=== PATIENT | male | born 1975 | race African-American/Black ===

== ENCOUNTER 2018-06-26 16:49 | Emergency (ER) | payer MEDICAID, SELFPAY ==
[2018-06-26 16:56] VITALS: BP 133/82; PULSE 83; RESP 16; TEMP 36.4; O2SAT 99; BMI 33.9
--- NOTE | 2018-06-26 17:57 | ED.EAR ---
HPI - Ear Problem <BASHIR Ryder - Last Filed: 06/26/18 21:35> General Chief complaint: Ear Stated complaint: LEFT EAR PAIN Time Seen by Provider: 06/26/18 17:57 Source: patient Mode of arrival: ambulatory Limitations: no limitations History of Present Illness HPI Narrative: 42-year-old male here for complaint of having pain into his left ear canal over the past several days. He denies any trauma to the area. He denies any fevers or chills. He denies any recent trauma. No drainage from the left ear. He denies any changes in hearing. He denies any recent travel. He denies diving or airline travel pain. He states that his today his right ear started hurting slightly as well. He denies any other concerns or complaints at this time. MD Complaint: ear pain Location: bilateral Related Data Home Medications Medication Instructions Recorded Confirmed oxybutynin chloride 5 mg PO TID #0 10/01/17 prazosin 2 mg PO HS #0 10/01/17 prazosin 5 mg PO HS #0 10/01/17 quetiapine 50 mg PO BID #0 10/01/17 risperidone [Risperdal] 1 mg PO HS #0 10/01/17 Previous Rx's Medication Instructions Recorded prednisone 20 mg PO SEE INSTRUCTIONS #8 tab 10/01/17 sulfamethoxazole-trimethoprim 1 tab PO BID #20 tab 10/01/17 ofloxacin 10 drop EAR-BOTH DAILY 7 Days #10 06/26/18 ml Allergies Allergy/AdvReac Type Severity Reaction Status Date / Time carrot [CARROT] Allergy Severe Swelling Verified 06/26/18 17:02 of Lip/Tongue/Throat Review of Systems <BASHIR Ryder - Last Filed: 06/26/18 21:35> Constitutional Denies chills, Denies fever(s), Denies lethargy and Denies weakness Eyes Denies change in vision, Denies eye discharge, Denies irritation and Denies loss of vision ENT Ears, Nose, Mouth, and Throat: Reports otalgia Cardiovascular Denies chest pain, Denies irregular heart rhythm, Denies lightheadedness, Denies palpitations, Denies dyspnea, Denies dyspnea on exertion and Denies orthopnea Respiratory Denies cough, Denies dyspnea, Denies dyspnea on exertion and Denies wheezing Genitourinary Denies hematuria, Denies flank pain, Denies urinary incontinence and Denies urinary urgency Musculoskeletal Denies back pain, Denies muscle weakness, Denies numbness and Denies tingling Integumentary/Breasts Denies pruritus, Denies erythema, Denies rash and Denies wounds Neurologic Denies confusion, Denies loss of vision, Denies numbness, Denies tingling and Denies weakness Psychiatric Denies anxiety, Denies confusion, Denies depression, Denies homicidal ideation and Denies suicidal ideation Endocrine Denies palpitations Hematologic/Lymphatic Denies easy bruising Allergic/Immunologic Denies wheezing Exam <JESSE RyderP - Last Filed: 06/26/18 21:35> Initial Vital Signs Initial Vital Signs: Vital Signs Temperature 97.5 F L 06/26/18 16:56 Pulse Rate 83 06/26/18 16:56 Respiratory Rate 16 06/26/18 16:56 Blood Pressure 133/82 H 06/26/18 16:56 Pulse Oximetry 99 06/26/18 16:56 Const General: cooperative and well developed Nutritional Appearance: well nourished Orientation: alert, awake, oriented x3 and not confused HENMT Ears: external ears normal, TM's normal bilaterally and EAC's normal (Bilateral external ear canals erythematous) Mouth: oral mucosae normal and moist mucous membranes Eyes Conjunctivae: conjunctivae normal Sclera: sclerae normal Pupils: PERRL EOM: EOM intact bilaterally Resp Effort & Inspection: normal respiratory effort, able to speak in complete sentences, no respiratory distress and no use of accessory muscles Auscultation: clear to auscultation bilaterally, no rales, no rhonchi and no wheezes Cardio Rate: regular rate Rhythm: regular rhythm Heart Sounds: no click, no gallops, no murmurs and no rubs Pulses: normal peripheral pulses Skin General: no rashes or lesions noted, No jaundice and No petechiae Neuro General: alert, oriented x3, gait normal and no focal motor deficits Speech: speech normal <Ventura Schuler DO - Last Filed: 06/27/18 03:14> Initial Vital Signs Initial Vital Signs: Vital Signs Temperature 97.5 F L 06/26/18 16:56 Pulse Rate 83 06/26/18 16:56 Respiratory Rate 16 06/26/18 16:56 Blood Pressure 133/82 H 06/26/18 16:56 Pulse Oximetry 99 06/26/18 16:56 Course <BASHIR Ryder - Last Filed: 06/26/18 21:35> Orders Ordered: Discontinued Medications Ofloxacin (Floxin 0.3% Otic) 10 drops EAR-BOTH NOW ONE Stop: 06/26/18 20:04 Last Admin: 06/26/18 20:27 Dose: 10 drops Vital Signs - 8 hr 06/26/18 16:56 Temperature 97.5 F L Pulse Rate 83 Respiratory Rate 16 Blood Pressure 133/82 H Pulse Oximetry 99 <Ventura Schuler DO - Last Filed: 06/27/18 03:14> Orders Ordered: Discontinued Medications Ofloxacin (Floxin 0.3% Otic) 10 drops EAR-BOTH NOW ONE Stop: 06/26/18 20:04 Last Admin: 06/26/18 20:27 Dose: 10 drops Vital Signs - 8 hr 06/26/18 16:56 Temperature 97.5 F L Pulse Rate 83 Respiratory Rate 16 Blood Pressure 133/82 H Pulse Oximetry 99 Medical Decision Making <BASHIR Ryder - Last Filed: 06/26/18 21:35> MDM Narrative Medical decision making narrative: Signs and symptoms presents as a bilateral otitis externa. He is given a Dosepak of neomycin and polymyxin B hydrocortisone solution for treatment. Follow up with primary care provider later this week for re-evaluation. For any worsening symptoms return to the emergency room. Discharge Plan Departure Patient Disposition: Home Clinical Impression: Otitis externa Discharge Date/Time: 06/26/18 20:37 Interventions: ED Discharge Assessment Last Done: 06/26/18 20:37 Instructions: DI for Otitis Externa Activity Restrictions/Additional Instructions: Signs and symptoms presents as external ear infection called otitis externa. You have been placed on antibiotic drops use as directed. Use [id number] Tylenol or Motrin as needed for any discomfort. Follow up with primary care provider later this week. For any worsening symptoms return to the emergency room. Prescriptions: New ofloxacin 0.3 % drops 10 drop EAR-BOTH DAILY 7 Days Qty: 10 RF: 0 No Action risperidone [Risperdal] 1 MG tablet 1 mg PO HS Qty: 0 RF: 0 quetiapine 50 MG tablet 50 mg PO BID Qty: 0 RF: 0 prazosin 5 MG capsule 5 mg PO HS Qty: 0 RF: 0 prazosin 2 MG capsule 2 mg PO HS Qty: 0 RF: 0 oxybutynin chloride 5 MG tablet 5 mg PO TID Qty: 0 RF: 0 prednisone 20 MG tablet 20 mg PO SEE INSTRUCTIONS Qty: 8 RF: 0 sulfamethoxazole-trimethoprim 800 MG/160 MG tablet 1 tab PO BID Qty: 20 RF: 0 Referrals: [facility] [Provider Group] <Ventura Schuler, - Last Filed: 06/27/18 03:14> Cosign ED Attending Benson Attestation: I was immediately available in the department for consultation. Documentation has been reviewed. I agree with assessment and plan.
[2018-06-26] MEDS: OFLOXACIN 0.3% OTIC 5 ML 10 DROPS EAR-BOTH (20:27)
== END 2018-06-26 20:37 | disposition home or self-care (01) ==
PROVIDERS: Emergency Provider Nurse Practitioner Family
DX: H60.92 Unspecified otitis externa, left ear (principal)
CPT/HCPCS: 99282

== ENCOUNTER 2019-05-15 20:44 | Emergency (ER) | payer MEDICAID, SELFPAY ==
[2019-05-15 20:50] VITALS: BP 157/86; PULSE 87; RESP 25; TEMP 37.2; O2SAT 96; BMI 34.2
--- NOTE | 2019-05-15 20:57 | ED.CHESTPAIN ---
HPI - Chest Pain General Chief Complaint: Chest Pain Stated Complaint: CHEST PAIN Time Seen by Provider: 05/15/19 20:57 Source: patient Mode of arrival: ambulatory Limitations: no limitations History of Present Illness HPI narrative: Patient is a 43-year-old male who was just discharged from an outside facility today after he was admitted for several days with a diagnosis of rhabdomyolysis. Patient states he was sitting on his couch earlier today when he started to have right-sided chest pain. He states it was a sudden onset. It was worse with palpation. States that it is a fairly pinpoint area on the right side of his chest. No shortness of breath. Has not tried anything for the symptoms prior to arrival. Related Data Home Medications Medication Instructions Recorded Confirmed oxybutynin chloride 5 mg PO TID #0 10/01/17 prazosin 2 mg PO HS #0 10/01/17 prazosin 5 mg PO HS #0 10/01/17 quetiapine 50 mg PO BID #0 10/01/17 risperidone [Risperdal] 1 mg PO HS #0 10/01/17 Previous Rx's Medication Instructions Recorded prednisone 20 mg PO SEE INSTRUCTIONS #8 tab 10/01/17 sulfamethoxazole-trimethoprim 1 tab PO BID #20 tab 10/01/17 Allergies Allergy/AdvReac Type Severity Reaction Status Date / Time carrot [CARROT] Allergy Severe Swelling Verified 06/26/18 17:02 of Lip/Tongue/Throat Review of Systems Constitutional Denies fever(s) and Denies headache(s) ENT Ears, Nose, Mouth, and Throat: Denies dizziness and Denies headache(s) Cardiovascular Reports chest pain, Denies irregular heart rhythm, Denies radiating jaw, neck or arm pain, Denies palpitations and Denies dyspnea Respiratory Denies cough and Denies dyspnea Gastrointestinal Gastrointestinal: Denies abdominal pain, Denies nausea and Denies vomiting Musculoskeletal Denies back pain, Denies myalgias and Denies arthralgias Integumentary/Breasts Denies rash Neurologic Denies dizziness and Denies headache(s) Endocrine Denies palpitations Hematologic/Lymphatic Denies easy bleeding and Denies easy bruising Allergic/Immunologic Denies urticaria [facility] Medical History Erysipelas (Acute) Social History (Reviewed 05/16/19 @ 02:24 by ANAHY Roberts Smoking Status: Former smoker Exam Initial Vital Signs Initial Vital Signs: Vital Signs Temperature 98.9 F 05/15/19 20:50 Pulse Rate 87 05/15/19 20:50 Respiratory Rate 25 H 05/15/19 20:50 Blood Pressure 157/86 H 05/15/19 20:50 Pulse Oximetry 96 05/15/19 20:50 Const General: cooperative, comfortable, well developed, well groomed and No acute distress Orientation: alert, awake and oriented x3 HENMT Head: normal to inspection and normocephalic Chest Chest: No crepitus and tenderness (right sided) Resp Effort & Inspection: normal respiratory effort Auscultation: clear to auscultation bilaterally Cardio Rate: regular rate Rhythm: regular rhythm Pulses: radial pulses present GI Inspection: non-distended Palpation: soft, No firm and No tender Skin Lesions: no lesions Rashes: no rashes Neuro General: alert and awake Cognition: normal cognition Speech: speech normal Gait: normal gait Extrem General: normal to inspection and capillary refill normal Psych Appearance: grossly normal and well kempt Scores HEART Score Heart Score history: Slightly Suspicious Heart Score EKG: Normal Heart Score Age: 45-64 years old Heart Score risk factors: No known risk factors Heart Score troponin: < or = to normal limit Heart Score Total: 1 Course Orders Ordered: ED Orders 05/15/19 20:59 XR chest 1V Stat EKG-12 Lead Stat 05/15/19 21:08 Complete Blood Count AUTO DIFF Stat Comprehensive Metabolic Panel Stat Creatine Kinase Stat Ethanol (ETOH) Stat Partial Thromboplastin Time Stat Prothrombin Time INR Stat Troponin I Stat Discontinued Medications Aspirin (Aspirin Chew) 324 mg PO NOW ONE Stop: 05/15/19 20:58 Last Admin: 05/15/19 21:03 Dose: 324 mg Sodium Chloride (Normal Saline 0.9%) 1,000 mls @ 125 mls/hr IV CONT TRANG Last Infusion: 05/15/19 22:04 Dose: 125 mls/hr Admin: 05/15/19 21:06 Dose: 125 mls/hr Vital Signs - 8 hr 05/15/19 20:50 05/15/19 21:11 05/15/19 21:57 Temperature 98.9 F Pulse Rate 87 87 82 Respiratory Rate 25 H 24 22 Blood Pressure 157/86 H Blood Pressure [Right Arm] 152/78 H 145/91 H Pulse Oximetry 96 96 95 MDM - Chest Pain Lab Data Attestation: I reviewed the patient's lab results. Result diagrams: 05/15/19 21:08 05/15/19 21:08 Lab Results 05/15/19 05/15/19 05/15/19 Range/Units 21:08 21:08 21:08 WBC 8.1 (4.5-11.0) X10^3/uL RBC 4.89 (4.5-5.9) X10^6/uL Hgb 14.0 (13.5-17.5) g/dL Hct 40.5 L (41-53) % MCV 82.8 (80-100) fL MCH 28.6 (26-34) PG MCHC 34.5 (30-36) % RDW 13.5 (11.6-14.8) % Plt Count 283 (150-400) X10^3/uL Neut % (Auto) 55.9 (50-75) % Lymph % (Auto) 29.6 (25-40) % [place] % (Auto) 11.0 (3-14) % Eos % (Auto) 2.2 (2-4) % Baso % (Auto) 1.3 (0-2) % Neut # (Auto) 4500 (7950-3966) /uL Lymph # (Auto) 2400 (4933-2354) /uL [place] # (Auto) 900 (0-900) /uL Eos # (Auto) 200 (0-450) /uL Baso # (Auto) 100 (0-100) /uL PT 10.5 (10.1-12.7) SECONDS INR 0.9 (0.9-1.3) APTT 28 (26.4-36.2) SECONDS Sodium 141 (137-145) mmol/L Potassium 4.1 (3.4-5.1) mmol/L Chloride 102 (98-107) mmol/L Carbon Dioxide 29 (22-32) mmol/L BUN 12 (9-20) mg/dL Creatinine 1.10 (0.66-1.25) mg/dL Estimated GFR > 60.0 (>60) mL/min BUN/Creatinine Ratio 10.9 (6-22) Glucose 103 H (70-100) mg/dL Calcium 9.7 (8.4-10.2) mg/dL Total Bilirubin 0.4 (0.2-1.3) mg/dL AST 63 H (17-59) IU/L ALT 73 H (21-72) IU/L Alkaline Phosphatase 95 (38-126) U/L Total Creatine Kinase 649 H (55-170) U/L Troponin I (0.01-0.034) ng/mL Total Protein 7.7 (6.3-8.2) g/dL Albumin 4.4 (3.5-5.0) g/dL Globulin 3.3 (1.7-4.1) g/dL Albumin/Globulin Ratio 1.3 (1.0-2.8) Ethyl Alcohol < 10 mg/dL 05/15/19 Range/Units 21:08 WBC (4.5-11.0) X10^3/uL RBC (4.5-5.9) X10^6/uL Hgb (13.5-17.5) g/dL Hct (41-53) % MCV (80-100) fL MCH (26-34) PG MCHC (30-36) % RDW (11.6-14.8) % Plt Count (150-400) X10^3/uL Neut % (Auto) (50-75) % Lymph % (Auto) (25-40) % [place] % (Auto) (3-14) % Eos % (Auto) (2-4) % Baso % (Auto) (0-2) % Neut # (Auto) (1499-4835) /uL Lymph # (Auto) (7625-3688) /uL [place] # (Auto) (0-900) /uL Eos # (Auto) (0-450) /uL Baso # (Auto) (0-100) /uL PT (10.1-12.7) SECONDS INR (0.9-1.3) APTT (26.4-36.2) SECONDS Sodium (137-145) mmol/L Potassium (3.4-5.1) mmol/L Chloride (98-107) mmol/L Carbon Dioxide (22-32) mmol/L BUN (9-20) mg/dL Creatinine (0.66-1.25) mg/dL Estimated GFR (>60) mL/min BUN/Creatinine Ratio (6-22) Glucose (70-100) mg/dL Calcium (8.4-10.2) mg/dL Total Bilirubin (0.2-1.3) mg/dL AST (17-59) IU/L ALT (21-72) IU/L Alkaline Phosphatase (38-126) U/L Total Creatine Kinase (55-170) U/L Troponin I < 0.012 (0.01-0.034) ng/mL Total Protein (6.3-8.2) g/dL Albumin (3.5-5.0) g/dL Globulin (1.7-4.1) g/dL Albumin/Globulin Ratio (1.0-2.8) Ethyl Alcohol mg/dL Imaging Data Chest x-ray: Radiologist's impression: [address] [address] XRay Report Signed Patient: Orion Gómez PMR#: [id number] : 1975Acct:[id number] Age/Sex: 43 / MDate of Service: 05/15/19 Loc: ED Accession Number: [id number] Procedure: XR chest 1V Ordering Provider: Rommel Molina D.O. PROCEDURE: XR CHEST 1V INDICATIONS: Chest pain TECHNIQUE: One view of the chest was acquired. COMPARISON: None. FINDINGS: Surgical changes and devices: None. Lungs and pleura: Lungs are clear. No pleural effusions or pneumothorax. Mediastinum: Mediastinal contours appear normal. Heart size is normal. Bones and chest wall: No suspicious bony lesions. Overlying soft tissues appear unremarkable. IMPRESSION: No acute pulmonary process. Dictated by: Iva Eubanks M.D. on 05/15/2019 at 21:25 Approved by: Iva Eubanks M.D. on 05/15/2019 at 21:25 ECG Data Attestation: I personally reviewed and interpreted this ECG as follows: Prior ECG tracings: not available for review Interpretation: Sinus rhythm Ventricular rate 89 Normal axis Normal QRS Normal QTC Nonspecific ST T wave changes MDM Narrative Medical decision making narrative: Patient with reproducible right-sided chest discomfort. EKG is unremarkable. Chest x-ray is unremarkable. CK is slightly elevated I suspect that this is decreased from when he was discharged. His creatinine is unremarkable. Low suspicion for ACS. Discussed this with the patient. We discussed return precautions and follow-up instructions. He expressed understanding and agreement plan. Discharge Plan Departure Patient Disposition: Home Clinical Impression: Anterior chest wall pain Discharge Date/Time: 05/15/19 22:08 Interventions: ED Discharge Assessment Last Done: 05/15/19 22:05 Instructions: DI for Atypical Chest Pain Activity Restrictions/Additional Instructions: Recommend that tomorrow you follow-up with the clinic. Be sure to increase your fluid intake. Return to the emergency department for any new or worsening symptoms Prescriptions: No Action risperidone [Risperdal] 1 MG tablet 1 mg PO HS Qty: 0 RF: 0 quetiapine 50 MG tablet 50 mg PO BID Qty: 0 RF: 0 prazosin 5 MG capsule 5 mg PO HS Qty: 0 RF: 0 prazosin 2 MG capsule 2 mg PO HS Qty: 0 RF: 0 oxybutynin chloride 5 MG tablet 5 mg PO TID Qty: 0 RF: 0 prednisone 20 MG tablet 20 mg PO SEE INSTRUCTIONS Qty: 8 RF: 0 sulfamethoxazole-trimethoprim 800 MG/160 MG tablet 1 tab PO BID Qty: 20 RF: 0
[2019-05-15] MEDS: ASPIRIN 81 MG TAB 324 MG PO (21:03)
[2019-05-15] MEDS: SODIUM CHLORIDE 0.9% 1,000 ML 125 ML IV (21:06)
[2019-05-15 21:11] VITALS: BP 152/78; PULSE 87; RESP 24; O2SAT 96
[2019-05-15 21:16] LABS: Add Manual Diff / Slide Review NO; Basophils Absolute Auto 100 /uL (0-100); Basophils Percent Auto 1.3 % (0-2); Eosinophils Absolute Auto 200 /uL (0-450); Eosinophils Percent Auto 2.2 % (2-4); Hematocrit 40.5 % (41-53); Lymphocytes Absolute Auto 2400 /uL (1100-4500); Lymphocytes Percent Auto 29.6 % (25-40); Mean Corpuscular HGB Conc 34.5 % (30-36); Mean Corpuscular Hemoglobin 28.6 PG (26-34); Mean Corpuscular Volume 82.8 fL (80-100); Monocytes Absolute Auto 900 /uL (0-900); Neutrophils Absolute Auto 4500 /uL (1500-7000); Neutrophils Percent Auto 55.9 % (50-75); Platelet Count 283 X10^3/uL (150-400); Red Blood Cell Count 4.89 X10^6/uL (4.5-5.9); Red Cell Distribution Width 13.5 % (11.6-14.8); White Blood Cell Count 8.1 X10^3/uL (4.5-11.0)
[2019-05-15 21:24] LABS: INR 0.9 (0.9-1.3); Prothrombin Time 10.5 SECONDS (10.1-12.7)
[2019-05-15 21:27] LABS: PTT Partial Thromboplastin Tim 28 SECONDS (26.4-36.2)
[2019-05-15 21:30] LABS: Alanine Aminotransferase 73 IU/L (21-72); Albumin 4.4 g/dL (3.5-5.0); Albumin Globulin Ratio 1.3 (1.0-2.8); Alkaline Phosphatase 95 U/L (38-126); Aspartate Aminotransferase 63 IU/L (17-59); BUN Creatinine Ratio 10.9 (6-22); Bilirubin Total 0.4 mg/dL (0.2-1.3); Blood Urea Nitrogen 12 mg/dL (9-20); Calcium 9.7 mg/dL (8.4-10.2); Carbon Dioxide 29 mmol/L (22-32); Chloride 102 mmol/L (98-107); Creatine Kinase 649 U/L (55-170); Estimated Glomerular Filt Rate > 60.0 mL/min (>60); Ethanol (ETOH) < 10 mg/dL; Globulin 3.3 g/dL (1.7-4.1); Glucose 103 mg/dL (70-100); HEMOLYSIS 17 (0-50); Potassium 4.1 mmol/L (3.4-5.1); Sodium 141 mmol/L (137-145); Total Protein 7.7 g/dL (6.3-8.2)
[2019-05-15 21:42] LABS: Troponin I < 0.012 ng/mL (0.01-0.034)
[2019-05-15 21:57] VITALS: BP 145/91; PULSE 82; RESP 22; O2SAT 95
== END 2019-05-15 22:08 | disposition home or self-care (01) ==
PROVIDERS: Emergency Provider Emergency Medicine
DX: R07.89 Other chest pain (principal)
CPT/HCPCS: 36591; 71045; 80053; 80320; 82550; 84484; 85025; 85610; 85730; 93005; 96360; 99283; 99285

== ENCOUNTER 2019-06-20 23:25 | Emergency (ER) | payer MEDICAID, SELFPAY ==
[2019-06-20 23:30] VITALS: BP 155/99; PULSE 117; RESP 35; TEMP 37; O2SAT 94; BMI 35.2
[2019-06-20 23:35] VITALS: PULSE 117; RESP 35; TEMP 37; O2SAT 94
--- NOTE | 2019-06-20 23:48 | DI.RAD.S_ITS ---
PROCEDURE: XR CHEST 1V INDICATIONS: chest pain, dyspnea TECHNIQUE: One view of the chest was acquired. COMPARISON: [facility], CR, XR CHEST 1V, 05/15/2019, 21:07. FINDINGS: Surgical changes and devices: None. Lungs and pleura: Lung volumes are slightly diminished. Mild diffuse interstitial prominence. Interval visualization of the right minor fissure. There is hazy opacities of the left costophrenic angle suggesting a small left pleural effusion. Mild vascular congestion. No pneumothorax. No focal consolidation. Mediastinum: cardiomediastinal contours appear within normal limits with mild enlargement of the cardiac silhouette. This may be in part due to portable technique and mild lordotic positioning. Bones and chest wall: No suspicious bony lesions. Overlying soft tissues appear unremarkable. Healed left rib fracture deformity as before. IMPRESSION: Diffuse interstitial prominence, suggestion of vascular congestion and small bilateral pleural effusions. This in combination with mild cardiomegaly are suggestive of pulmonary edema. Infectious/inflammatory process not excluded. Patient positioning and hypoventilatory changes may accentuate these findings. Dictated by: Edouard Ghosh M.D. on 06/21/2019 at 9:17 Approved by: Edouard Ghosh M.D. on 06/21/2019 at 9:20
[2019-06-21 00:09] LABS: Add Manual Diff / Slide Review NO; Basophils Absolute Auto 100 /uL (0-100); Basophils Percent Auto 0.7 % (0-2); Eosinophils Absolute Auto 0 /uL (0-450); Eosinophils Percent Auto 0.1 % (2-4); Hematocrit 42.2 % (41-53); Hemoglobin 14.3 g/dL (13.5-17.5); Lymphocytes Absolute Auto 1300 /uL (1100-4500); Lymphocytes Percent Auto 17.1 % (25-40); Mean Corpuscular HGB Conc 33.8 % (30-36); Mean Corpuscular Hemoglobin 28.7 PG (26-34); Mean Corpuscular Volume 84.8 fL (80-100); Monocytes Absolute Auto 1100 /uL (0-900); Monocytes Percent Auto 13.5 % (3-14); Neutrophils Absolute Auto 5300 /uL (1500-7000); Neutrophils Percent Auto 68.6 % (50-75); Platelet Count 218 X10^3/uL (150-400); Red Blood Cell Count 4.97 X10^6/uL (4.5-5.9); Red Cell Distribution Width 14.3 % (11.6-14.8); White Blood Cell Count 7.8 X10^3/uL (4.5-11.0)
[2019-06-21 00:19] LABS: Alanine Aminotransferase 64 IU/L (21-72); Albumin 4.5 g/dL (3.5-5.0); Albumin Globulin Ratio 1.3 (1.0-2.8); Alkaline Phosphatase 88 U/L (38-126); Aspartate Aminotransferase 47 IU/L (17-59); BUN Creatinine Ratio 13.3 (6-22); Bilirubin Total 0.8 mg/dL (0.2-1.3); Blood Urea Nitrogen 16 mg/dL (9-20); Calcium 9.6 mg/dL (8.4-10.2); Carbon Dioxide 26 mmol/L (22-32); Chloride 98 mmol/L (98-107); Creatine Kinase 695 U/L (55-170); Estimated Glomerular Filt Rate > 60.0 mL/min (>60); Globulin 3.5 g/dL (1.7-4.1); Glucose 166 mg/dL (70-100); HEMOLYSIS < 15 (0-50); Lipase 45 U/L (23-300); Potassium 4.3 mmol/L (3.4-5.1); Sodium 136 mmol/L (137-145)
[2019-06-21] MEDS: ASPIRIN 81 MG TAB 324 MG PO (00:19)
[2019-06-21] MEDS: SODIUM CHLORIDE 0.9% 1,000 ML 150 ML IV (00:20)
[2019-06-21 00:30] LABS: Troponin I 0.027 ng/mL (0.01-0.034)
[2019-06-21 00:34] LABS: CKMB % Relative Index 0.3 % (1.5-5.0); Creatine Kinase MB 1.87 ng/mL (<2.37)
[2019-06-21] MEDS: OLANZapine ODT 10 MG TAB 20 MG PO (01:18)
[2019-06-21 01:34] VITALS: BP 188/101; PULSE 109; RESP 20; O2SAT 98
--- NOTE | 2019-06-21 01:46 | PC.NURSE ---
Moved to room 6 to be in view of nurses station.
--- NOTE | 2019-06-21 01:47 | ED.CHESTPAIN ---
HPI - Chest Pain General Chief Complaint: Chest Pain Stated Complaint: Chest pain Time Seen by Provider: 06/20/19 23:25 Source: patient and EMS Mode of arrival: EMS Limitations: no limitations History of Present Illness HPI narrative: 43-year-old male smoker with history of schizophrenia presents with chest pain and shortness of breath that started after snorting methamphetamines. He has had this on multiple occasions before. He states he has not taken his antipsychotics in the past few days and occasionally hears voices which drove him to use the drugs. He is not dizzy nor weak or lightheaded. He is alert and oriented. He denies any fever or shaking chills. He denies any recent travel or history of clots. MD complaint: chest pain Duration: constant Onset: during rest Pain location: substernal Severity: moderate Quality: sharp Pain radiation: none Relieving factors: nothing Exacerbating factors: nothing Related Data Home Medications Medication Instructions Recorded Confirmed oxybutynin chloride 5 mg PO TID #0 10/01/17 prazosin 2 mg PO HS #0 10/01/17 prazosin 5 mg PO HS #0 10/01/17 quetiapine 50 mg PO BID #0 10/01/17 risperidone [Risperdal] 1 mg PO HS #0 10/01/17 Previous Rx's Medication Instructions Recorded prednisone 20 mg PO SEE INSTRUCTIONS #8 tab 10/01/17 sulfamethoxazole-trimethoprim 1 tab PO BID #20 tab 10/01/17 Allergies Allergy/AdvReac Type Severity Reaction Status Date / Time carrot [CARROT] Allergy Severe Swelling Verified 06/21/19 00:10 of Lip/Tongue/Throat Review of Systems Constitutional Reports chills, Denies fever(s), Denies lethargy and Denies weakness Eyes Denies change in vision, Denies eye discharge, Denies irritation and Denies loss of vision ENT Ears, Nose, Mouth, and Throat: Denies change in voice, Denies neck pain and Denies sore throat Cardiovascular Reports chest pain, Denies irregular heart rhythm, Denies lightheadedness, Denies palpitations, Reports dyspnea, Reports dyspnea on exertion and Denies orthopnea Respiratory Denies cough, Reports dyspnea, Reports dyspnea on exertion and Denies wheezing Gastrointestinal Gastrointestinal: Denies abdominal pain, Denies change in bowel habits, Denies diarrhea, Denies nausea and Denies vomiting Genitourinary Denies hematuria, Denies flank pain, Denies urinary incontinence and Denies urinary urgency Musculoskeletal Denies neck pain Integumentary/Breasts Denies pruritus, Denies erythema, Denies rash and Denies wounds Neurologic Denies confusion, Denies loss of vision and Denies weakness Psychiatric Denies anxiety, Denies confusion, Denies depression, Denies homicidal ideation and Denies suicidal ideation Endocrine Denies palpitations Hematologic/Lymphatic Denies easy bruising Allergic/Immunologic Denies wheezing [facility] Medical History Erysipelas (Acute) Social History Smoking Status: Former smoker Social History Smoking Status: Former smoker Exam Narrative Exam Narrative: GENERAL: [43] year old patient appears stated age. Well-nourished, well-developed patient, in mild distress. HEAD: Atraumatic. Normocephalic. EYES: Pupils equal round and reactive. Extraocular motions intact. No scleral icterus. No injection or drainage. ENT: Nose without bleeding, purulent drainage. Throat without erythema, tonsillar hypertrophy or exudate. Airway patent. NECK: Trachea midline. Non tender CARDIOVASCULAR: Regular rate and rhythm without murmurs, gallops, or rubs. RESPIRATORY: Clear to auscultation. Breath sounds equal bilaterally. No wheezes, rales, or rhonchi. GASTROINTESTINAL: Abdomen soft, non-tender, nondistended. EXTREMITIES: No edema or joint tenderness. BACK: Nontender without deformity or crepitance. No flank tenderness. NEURO: AOx3. SKIN: No rash or erythema of visible areas Initial Vital Signs Initial Vital Signs: Vital Signs Temperature 98.6 F 06/20/19 23:30 Pulse Rate 117 H 06/20/19 23:30 Respiratory Rate 35 H 06/20/19 23:30 Blood Pressure 155/99 H 06/20/19 23:30 Pulse Oximetry 94 06/20/19 23:30 Course Orders Ordered: ED Orders 06/20/19 23:40 Complete Blood Count AUTO DIFF Stat Comprehensive Metabolic Panel Stat Lipase Stat Troponin & CK Cardiac Panel Stat 06/20/19 23:48 XR chest 1V Stat Sodium Chloride (Normal Saline 0.9%) 1,000 mls @ 150 mls/hr IV CONT TRANG Last Admin: 06/21/19 00:20 Dose: 150 mls/hr Discontinued Medications Aspirin (Aspirin Chew) 324 mg PO NOW ONE Stop: 06/20/19 23:49 Last Admin: 06/21/19 00:19 Dose: 324 mg Olanzapine (Zyprexa Zydis) 20 mg PO NOW ONE Stop: 06/21/19 01:12 Last Admin: 06/21/19 01:18 Dose: 20 mg Reevaluation(s) Reevaluation #1: Patient start stating that he is hearing voices, admitting he has not taken his antipsychotics in a few days because he forgets. He requested we give him medicines to help. Reevaluation #2: Patient doing markedly better after olanzapine. He states he has plenty of his medications at home Vital Signs - 8 hr 06/20/19 23:30 06/20/19 23:35 06/21/19 01:34 Temperature 98.6 F 98.6 F Pulse Rate 117 H 117 H 109 H Respiratory Rate 35 H 35 H 20 Blood Pressure 155/99 H Blood Pressure [Right Arm] 188/101 H Pulse Oximetry 94 94 98 MDM - Chest Pain Lab Data Result diagrams: 06/20/19 23:40 06/20/19 23:40 Lab Results 06/20/19 06/20/19 Range/Units 23:40 23:40 WBC 7.8 (4.5-11.0) X10^3/uL RBC 4.97 (4.5-5.9) X10^6/uL Hgb 14.3 (13.5-17.5) g/dL Hct 42.2 (41-53) % MCV 84.8 (80-100) fL MCH 28.7 (26-34) PG MCHC 33.8 (30-36) % RDW 14.3 (11.6-14.8) % Plt Count 218 (150-400) X10^3/uL Neut % (Auto) 68.6 (50-75) % Lymph % (Auto) 17.1 L (25-40) % [place] % (Auto) 13.5 (3-14) % Eos % (Auto) 0.1 L (2-4) % Baso % (Auto) 0.7 (0-2) % Neut # (Auto) 5300 (2575-7836) /uL Lymph # (Auto) 1300 (6797-6495) /uL [place] # (Auto) 1100 H (0-900) /uL Eos # (Auto) 0 (0-450) /uL Baso # (Auto) 100 (0-100) /uL Sodium 136 L (137-145) mmol/L Potassium 4.3 (3.4-5.1) mmol/L Chloride 98 (98-107) mmol/L Carbon Dioxide 26 (22-32) mmol/L BUN 16 (9-20) mg/dL Creatinine 1.20 (0.66-1.25) mg/dL Estimated GFR > 60.0 (>60) mL/min BUN/Creatinine Ratio 13.3 (6-22) Glucose 166 H (70-100) mg/dL Calcium 9.6 (8.4-10.2) mg/dL Total Bilirubin 0.8 (0.2-1.3) mg/dL AST 47 (17-59) IU/L ALT 64 (21-72) IU/L Alkaline Phosphatase 88 (38-126) U/L Total Creatine Kinase 695 H (55-170) U/L CK-MB (CK-2) 1.87 (<2.37) ng/mL CK-MB (CK-2) Rel Index 0.3 L (1.5-5.0) % Troponin I 0.027 (0.01-0.034) ng/mL Total Protein 8.0 (6.3-8.2) g/dL Albumin 4.5 (3.5-5.0) g/dL Globulin 3.5 (1.7-4.1) g/dL Albumin/Globulin Ratio 1.3 (1.0-2.8) Lipase 45 (23-300) U/L MDM Narrative Medical decision making narrative: Multiple etiologies for patient's symptoms considered including: [Cardiac ischemia versus pulmonary embolism versus pneumonia versus pneumothorax versus pancreatitis versus gallbladder disease versus bowel obstruction versus other] Patient's symptoms improved or duration of stay with above-stated therapies. Findings and discharge diagnosis discussed with patient/family followed by verbalization of understanding Return precautions discussed with patient/family whom verbalize understanding. Discharge Plan Departure Patient Disposition: Home Clinical Impression: Methamphetamine abuse Instructions: Methamphetamine Activity Restrictions/Additional Instructions: *You have been diagnosed with [ methamphetamine abuse, medication noncompliance ] *What to do: *Take medications as directed *Follow up with your primary care provider in 2-3 days, call for an appointment. Let them know you were seen in the Emergency Department and that we ask that you be seen in follow up *Return to ER if you should have any new, worsening or concerning symptoms, such as [ ] Prescriptions: No Action risperidone [Risperdal] 1 MG tablet 1 mg PO HS Qty: 0 RF: 0 quetiapine 50 MG tablet 50 mg PO BID Qty: 0 RF: 0 prazosin 5 MG capsule 5 mg PO HS Qty: 0 RF: 0 prazosin 2 MG capsule 2 mg PO HS Qty: 0 RF: 0 oxybutynin chloride 5 MG tablet 5 mg PO TID Qty: 0 RF: 0 prednisone 20 MG tablet 20 mg PO SEE INSTRUCTIONS Qty: 8 RF: 0 sulfamethoxazole-trimethoprim 800 MG/160 MG tablet 1 tab PO BID Qty: 20 RF: 0
[2019-06-21 04:30] VITALS: BP 169/94; PULSE 103; RESP 16; O2SAT 97
[2019-06-21 05:30] VITALS: BP 155/92; PULSE 101; RESP 17; O2SAT 98
== END 2019-06-21 06:15 | disposition home or self-care (01) ==
PROVIDERS: Emergency Provider Emergency Medicine
DX: F19.10 Other psychoactive substance abuse, uncomplicated (principal)
CPT/HCPCS: 71045; 80053; 82550; 82553; 83690; 84484; 85025; 93005; 93010; 96360; 96361; 99283; 99284

== ENCOUNTER → 2020-07-29 10:52 | Outpatient (CLI) | payer MEDICAID, SELFPAY ==
--- NOTE | 2020-07-29 | DI.RAD.S_ITS ---
PROCEDURE: XR CHEST 2V INDICATIONS: ROUTINE SCREENING MAMMOGRAM TECHNIQUE: 2 views of the chest were acquired. COMPARISON: [facility], CR, XR CHEST 1V, 06/21/2019, 0:09. [facility], CR, XR CHEST 1 VIEW, 07/01/2020, 4:31. FINDINGS: Surgical changes and devices: None. Lungs and pleura: Persistent appearance of patchy bilateral pulmonary opacities slightly improved compared to prior exam. Mediastinum: Mediastinal contours are normal. Heart size is enlarged. Bones and chest wall: No suspicious bony abnormalities. Soft tissues appear unremarkable. IMPRESSION: Improved although persistent bilateral pulmonary opacities, suspicious for pneumonia. Areas of overlying edema cannot be excluded. Recommend interval followup to document resolution and exclude presence of underlying noninfectious/noninflammatory, potentially neoplastic mass. Dictated by: Iva Eubanks M.D. on 07/29/2020 at 12:27 Approved by: Iva Eubanks M.D. on 07/29/2020 at 12:28
== END ==
PROVIDERS: Referring Provider Family Medicine; Visit Provider Family Medicine
DX: R05 Cough (principal)
CPT/HCPCS: 71046

== ENCOUNTER 2020-08-11 16:33 | Inpatient (IN) | payer MEDICAID, SELFPAY ==
[2020-08-11] VITALS (10 sets, daily range): BP systolic 124–135; BP diastolic 68–85; PULSE 101–115; RESP 16–38; TEMP 36.4–36.5; O2SAT 94–99; BMI 49.5
--- NOTE | 2020-08-11 16:47 | ED.SOB ---
HPI - SOB/Dyspnea <Sneha Clements DO - Last Filed: 08/12/20 08:15> General Chief Complaint: Shortness of Breath/Dyspnea Stated Complaint: trouble breathing Time Seen by Provider: 08/11/20 16:42 Source: patient Mode of arrival: Ambulatory Limitations: no limitations History of Present Illness HPI Narrative: The patient is a 43-year-old male with history of asthma and shortness of breath and methamphetamine abuse presenting with increased shortness of breath. He says it has progressively been getting worse. He denies any fever or productive cough. He was placed on azithromycin and prednisone along with multiple inhalers without much relief. He apparently was at [facility] of here weeks ago was told he had congestive heart failure and was placed on a water pill and discharged. He is supposed to have an echocardiogram as an outpatient but that has not yet been scheduled.. MD Complaint: shortness of breath and cough Related Data Home Medications Medication Instructions Recorded Confirmed prazosin 2 mg PO HS #0 10/01/17 08/11/20 risperidone [Risperdal] 1 mg PO HS #0 10/01/17 08/11/20 albuterol sulfate 90 mcg INHALATION Q4H PRN 08/11/20 08/11/20 azithromycin 250 mg PO DAILY 08/11/20 08/11/20 divalproex 500 mg PO DAILY 08/11/20 08/11/20 prednisone 20 mg PO BID 08/11/20 08/11/20 Previous Rx's Medication Instructions Recorded sulfamethoxazole-trimethoprim 1 tab PO BID #20 tab 10/01/17 Allergies Allergy/AdvReac Type Severity Reaction Status Date / Time carrot [CARROT] Allergy Severe Swelling Verified 06/21/19 00:10 of Lip/Tongue/Throat Review of Systems <Sneha Clements DO - Last Filed: 08/12/20 08:15> Review of Systems Narrative: GENERAL: Denies chills, fatigue, malaise, fever, sweats, travel HEENT: Denies sinus pain, ear pain, sore throat, difficulty swallowing, neck pain RESPIRATORY: See HPI CARDIOVASCULAR: Denies chest pain, palpitations, orthopnea, edema GASTROINTESTINAL: Denies nausea, vomiting, abdominal pain, diarrhea, constipation, melena. : Denies dysuria, frequency, incontinence, hematuria, urinary retention, flank pain. MUSCULOSKELETAL: Denies weakness, joint pain, or bony pain SKIN: No rash, no erythema, no pruritus NEUROLOGIC: Denies weakness, dizziness, headache, numbness, change in speech, confusion PSYCHIATRIC: No concerning psychosocial issues. 12 point review of systems is negative except for those stated above and HPI Patient History <nSeha Clements DO - Last Filed: 08/12/20 08:15> Medical History (Updated 08/11/20 @ 23:35 by BASHIR Stevens) Alcohol dependence (Acute) Erysipelas (Inactive) Methamphetamine abuse (Inactive) Surgical History (Updated 08/11/20 @ 23:35 by BASHIR Stevens) No history of previous surgery (Acute) Family History (Updated 08/11/20 @ 23:36 by BASHIR Stevens) Father Myocardial infarction Mother Cancer Social History household members: significant other Smoking Status: Former smoker alcohol intake: current Smoking Status: Former smoker alcohol intake frequency: 3 or more drinks per day Substance Use Type: methamphetamine Exam <Sneha Clements DO - Last Filed: 08/12/20 08:15> Initial Vital Signs Initial Vital Signs: Vital Signs Temperature 97.5 F L 08/11/20 16:38 Pulse Rate 111 H 08/11/20 16:38 Respiratory Rate 24 08/11/20 16:38 Blood Pressure 124/68 08/11/20 16:38 Pulse Oximetry 97 08/11/20 16:38 Gen.: Alert middle-aged male in obvious moderate respiratory distress HEENT: Head is atraumatic extraocular muscles intact Neck: Supple, no JVD Lungs: Speaks in 1-2 word sentences decreased breath sounds bilaterally Cardiac: Tachycardic regular no murmur Abdomen: Soft nontender nondistended Extremities: No peripheral edema peripheral pulses intact Neurologic: Alert and oriented x4 moving all extremities <DO Donita Díaz Last Filed: 08/12/20 03:42> Initial Vital Signs Initial Vital Signs: Vital Signs Temperature 97.5 F L 08/11/20 16:38 Pulse Rate 111 H 08/11/20 16:38 Respiratory Rate 24 08/11/20 16:38 Blood Pressure 124/68 08/11/20 16:38 Pulse Oximetry 97 08/11/20 16:38 Course <Sneha Clements DO - Last Filed: 08/12/20 08:15> Orders Ordered: Discontinued Medications Albuterol (Ventolin) 10 mg INH NOW ONE Stop: 08/11/20 16:55 Last Admin: 08/11/20 16:58 Dose: 10 mg Documented by: CTRJIMAGNAnita Albuterol/Ipratropium (Duoneb) 3 ml INH NOW ONE Stop: 08/11/20 16:49 Last Admin: 08/11/20 17:11 Dose: 3 ml Documented by: CTRJOSED AVID Aspirin (Aspirin Ec) 325 mg PO NOW ONE Stop: 08/11/20 22:01 Last Admin: 08/11/20 22:44 Dose: Not Given Documented by: GLYNN Enoxaparin Sodium (Lovenox) 40 mg SUBCUT DAILY TRANG Furosemide (Lasix) 40 mg IV NOW ONE Stop: 08/11/20 18:04 Last Admin: 08/11/20 18:25 Dose: 40 mg Documented by: LUKE Heparin Sodium (Porcine) (Heparin) 5,000 unit IV NOW ONE; Protocol Stop: 08/11/20 23:22 Last Admin: 08/12/20 00:08 Dose: 5,000 unit Documented by: COOPER Heparin Sodium/Dextrose (Heparin Drip) 25,000 unit in 500 mls @ 20 mls/hr IV CONT TRANG; Protocol Last Admin: 08/12/20 00:03 Dose: 20 mls/hr, 20 mls/hr Documented by: COOPER Methylprednisolone (Solu-Medrol 125 Mg Vial) 125 mg IV NOW ONE Stop: 08/11/20 16:49 Last Admin: 08/11/20 17:28 Dose: 125 mg Documented by: ARTURO Morphine Sulfate (Morphine) 2 mg IV Q5MIN PRN PRN Reason: Chest Pain Last Admin: 08/12/20 00:30 Dose: 2 mg Documented by: Admin: 08/11/20 23:56 Dose: 2 mg Documented by: COOPER Naloxone HCl (Narcan) 0.2 mg IV Q2MIN PRN PRN Reason: Opiate Reversal Nitroglycerin (Nitrostat) 0.4 mg SL [id number] PRN PRN Reason: Chest Pain Last Admin: 08/12/20 00:49 Dose: 0.4 mg Documented by: Admin: 08/11/20 23:43 Dose: 0.4 mg Documented by: Admin: 08/11/20 23:38 Dose: 0.4 mg Documented by: GLYNN Ondansetron HCl (Zofran) 4 mg IV Q6HR PRN PRN Reason: Nausea And Vomiting Vital Signs Vital signs: Vital Signs - 8 hr 08/11/20 20:00 Temperature 97.7 F Pulse Rate 108 H Respiratory Rate 16 Blood Pressure 131/83 Pulse Oximetry 97 <Ventura Schuler DO - Last Filed: 08/12/20 03:42> Orders Ordered: Discontinued Medications Albuterol (Ventolin) 10 mg INH NOW ONE Stop: 08/11/20 16:55 Last Admin: 08/11/20 16:58 Dose: 10 mg Documented by: PETE Albuterol/Ipratropium (Duoneb) 3 ml INH NOW ONE Stop: 08/11/20 16:49 Last Admin: 08/11/20 17:11 Dose: 3 ml Documented by: PETE Aspirin (Aspirin Ec) 325 mg PO NOW ONE Stop: 08/11/20 22:01 Last Admin: 08/11/20 22:44 Dose: Not Given Documented by: GLYNN Enoxaparin Sodium (Lovenox) 40 mg SUBCUT DAILY TRANG Furosemide (Lasix) 40 mg IV NOW ONE Stop: 08/11/20 18:04 Last Admin: 08/11/20 18:25 Dose: 40 mg Documented by: LUKE Heparin Sodium (Porcine) (Heparin) 5,000 unit IV NOW ONE; Protocol Stop: 08/11/20 23:22 Last Admin: 08/12/20 00:08 Dose: 5,000 unit Documented by: COOPER Heparin Sodium/Dextrose (Heparin Drip) 25,000 unit in 500 mls @ 20 mls/hr IV CONT TRANG; Protocol Last Admin: 08/12/20 00:03 Dose: 20 mls/hr, 20 mls/hr Documented by: COOPER Methylprednisolone (Solu-Medrol 125 Mg Vial) 125 mg IV NOW ONE Stop: 08/11/20 16:49 Last Admin: 08/11/20 17:28 Dose: 125 mg Documented by: ARTURO Morphine Sulfate (Morphine) 2 mg IV Q5MIN PRN PRN Reason: Chest Pain Last Admin: 08/12/20 00:30 Dose: 2 mg Documented by: Admin: 08/11/20 23:56 Dose: 2 mg Documented by: COOPER Naloxone HCl (Narcan) 0.2 mg IV Q2MIN PRN PRN Reason: Opiate Reversal Nitroglycerin (Nitrostat) 0.4 mg SL [id number] PRN PRN Reason: Chest Pain Last Admin: 08/12/20 00:49 Dose: 0.4 mg Documented by: Admin: 08/11/20 23:43 Dose: 0.4 mg Documented by: Admin: 08/11/20 23:38 Dose: 0.4 mg Documented by: GLYNN Ondansetron HCl (Zofran) 4 mg IV Q6HR PRN PRN Reason: Nausea And Vomiting Vital Signs Vital signs: Vital Signs - 8 hr 08/11/20 20:00 Temperature 97.7 F Pulse Rate 108 H Respiratory Rate 16 Blood Pressure 131/83 Pulse Oximetry 97 MDM - SOB/Dyspnea <Sneha Clements DO - Last Filed: 08/12/20 08:15> Lab Data Attestation: I reviewed the patient's lab results. Result diagrams: 08/11/20 23:32 08/11/20 17:38 Labs: Lab Results 08/11/20 08/11/20 08/11/20 Range/Units 16:52 16:52 16:52 WBC 10.9 (4.5-11.0) X10^3/uL RBC 4.58 (4.5-5.9) X10^6/uL Hgb 12.6 L (13.5-17.5) g/dL Hct 38.4 L (41-53) % MCV 83.8 (80-100) fL MCH 27.5 (26-34) PG MCHC 32.8 (30-36) % RDW 14.8 (11.6-14.8) % Plt Count 366 (150-400) X10^3/uL Neut % (Auto) 67.9 (50-75) % Lymph % (Auto) 17.6 L (25-40) % [place] % (Auto) 11.1 (3-14) % Eos % (Auto) 2.5 (2-4) % Baso % (Auto) 0.9 (0-2) % Neut # (Auto) 7400 H (8773-1632) /uL Lymph # (Auto) 1900 (1844-4652) /uL [place] # (Auto) 1200 H (0-900) /uL Eos # (Auto) 300 (0-450) /uL Baso # (Auto) 100 (0-100) /uL Sodium (137-145) mmol/L Potassium (3.4-5.1) mmol/L Chloride (98-107) mmol/L Carbon Dioxide (22-32) mmol/L BUN (9-20) mg/dL Creatinine (0.66-1.25) mg/dL Estimated GFR (>60) mL/min BUN/Creatinine Ratio (6-22) Glucose (70-100) mg/dL Hemoglobin A1c (4.0-6.0) % Calcium (8.4-10.2) mg/dL Magnesium 2.2 (1.6-2.3) mg/dL Total Bilirubin (0.2-1.3) mg/dL AST (17-59) IU/L ALT (<50) IU/L Alkaline Phosphatase (38-126) U/L Total Creatine Kinase 320 H (55-170) U/L CK-MB (CK-2) 0.82 (<2.37) ng/mL CK-MB (CK-2) Rel Index 0.3 L (1.5-5.0) % Troponin I 0.041 H (0.01-0.034) ng/mL NT-Pro-B Natriuret Pep 3260 H (<125) pg/mL Total Protein (6.3-8.2) g/dL Albumin (3.5-5.0) g/dL Globulin (1.7-4.1) g/dL Albumin/Globulin Ratio (1.0-2.8) Procalcitonin 0.09 (<0.5) ng/mL U Opiates 300ng/mL cut (Negative) Ur Oxycodone Screen (Negative) Urine Methadone Screen (Negative) Ur Barbiturates Screen (Negative) U Tricyclic Antidepress (Negative) Ur Phencyclidine Scrn (Negative) Ur Amphetamines Screen (Negative) U Methamphetamines Scrn (Negative) Ur MDMA Scrn (Ecstasy) (Negative) U Benzodiazepines Scrn (Negative) Urine Cocaine Screen (Negative) U Marijuana (THC) Screen (Negative) COVID-19 PCR (Negative) 08/11/20 08/11/20 08/11/20 Range/Units 16:52 16:52 17:38 WBC (4.5-11.0) X10^3/uL RBC (4.5-5.9) X10^6/uL Hgb (13.5-17.5) g/dL Hct (41-53) % MCV (80-100) fL MCH (26-34) PG MCHC (30-36) % RDW (11.6-14.8) % Plt Count (150-400) X10^3/uL Neut % (Auto) (50-75) % Lymph % (Auto) (25-40) % [place] % (Auto) (3-14) % Eos % (Auto) (2-4) % Baso % (Auto) (0-2) % Neut # (Auto) (0601-4399) /uL Lymph # (Auto) (9145-8912) /uL [place] # (Auto) (0-900) /uL Eos # (Auto) (0-450) /uL Baso # (Auto) (0-100) /uL Sodium 133 L (137-145) mmol/L Potassium 4.3 (3.4-5.1) mmol/L Chloride 101 (98-107) mmol/L Carbon Dioxide 19 L (22-32) mmol/L BUN 11 (9-20) mg/dL Creatinine 1.04 (0.66-1.25) mg/dL Estimated GFR > 60.0 (>60) mL/min BUN/Creatinine Ratio 10.6 (6-22) Glucose 122 H (70-100) mg/dL Hemoglobin A1c 6.2 H (4.0-6.0) % Calcium 8.7 (8.4-10.2) mg/dL Magnesium (1.6-2.3) mg/dL Total Bilirubin 0.6 (0.2-1.3) mg/dL AST 44 (17-59) IU/L ALT 58 H (<50) IU/L Alkaline Phosphatase 131 H (38-126) U/L Total Creatine Kinase (55-170) U/L CK-MB (CK-2) (<2.37) ng/mL CK-MB (CK-2) Rel Index (1.5-5.0) % Troponin I (0.01-0.034) ng/mL NT-Pro-B Natriuret Pep (<125) pg/mL Total Protein 6.6 (6.3-8.2) g/dL Albumin 3.6 (3.5-5.0) g/dL Globulin 3.0 (1.7-4.1) g/dL Albumin/Globulin Ratio 1.2 (1.0-2.8) Procalcitonin (<0.5) ng/mL U Opiates 300ng/mL cut (Negative) Ur Oxycodone Screen (Negative) Urine Methadone Screen (Negative) Ur Barbiturates Screen (Negative) U Tricyclic Antidepress (Negative) Ur Phencyclidine Scrn (Negative) Ur Amphetamines Screen (Negative) U Methamphetamines Scrn (Negative) Ur MDMA Scrn (Ecstasy) (Negative) U Benzodiazepines Scrn (Negative) Urine Cocaine Screen (Negative) U Marijuana (THC) Screen (Negative) COVID-19 PCR Negative (Negative) 08/11/20 Range/Units 19:04 WBC (4.5-11.0) X10^3/uL RBC (4.5-5.9) X10^6/uL Hgb (13.5-17.5) g/dL Hct (41-53) % MCV (80-100) fL MCH (26-34) PG MCHC (30-36) % RDW (11.6-14.8) % Plt Count (150-400) X10^3/uL Neut % (Auto) (50-75) % Lymph % (Auto) (25-40) % [place] % (Auto) (3-14) % Eos % (Auto) (2-4) % Baso % (Auto) (0-2) % Neut # (Auto) (1862-9145) /uL Lymph # (Auto) (0862-9604) /uL [place] # (Auto) (0-900) /uL Eos # (Auto) (0-450) /uL Baso # (Auto) (0-100) /uL Sodium (137-145) mmol/L Potassium (3.4-5.1) mmol/L Chloride (98-107) mmol/L Carbon Dioxide (22-32) mmol/L BUN (9-20) mg/dL Creatinine (0.66-1.25) mg/dL Estimated GFR (>60) mL/min BUN/Creatinine Ratio (6-22) Glucose (70-100) mg/dL Hemoglobin A1c (4.0-6.0) % Calcium (8.4-10.2) mg/dL Magnesium (1.6-2.3) mg/dL Total Bilirubin (0.2-1.3) mg/dL AST (17-59) IU/L ALT (<50) IU/L Alkaline Phosphatase (38-126) U/L Total Creatine Kinase (55-170) U/L CK-MB (CK-2) (<2.37) ng/mL CK-MB (CK-2) Rel Index (1.5-5.0) % Troponin I (0.01-0.034) ng/mL NT-Pro-B Natriuret Pep (<125) pg/mL Total Protein (6.3-8.2) g/dL Albumin (3.5-5.0) g/dL Globulin (1.7-4.1) g/dL Albumin/Globulin Ratio (1.0-2.8) Procalcitonin (<0.5) ng/mL U Opiates 300ng/mL cut Positive H (Negative) Ur Oxycodone Screen Negative (Negative) Urine Methadone Screen Negative (Negative) Ur Barbiturates Screen Negative (Negative) U Tricyclic Antidepress Negative (Negative) Ur Phencyclidine Scrn Negative (Negative) Ur Amphetamines Screen Negative (Negative) U Methamphetamines Scrn Negative (Negative) Ur MDMA Scrn (Ecstasy) Negative (Negative) U Benzodiazepines Scrn Negative (Negative) Urine Cocaine Screen Negative (Negative) U Marijuana (THC) Screen Negative (Negative) COVID-19 PCR (Negative) Imaging Data Chest x-ray: Radiologist's Impression: PROCEDURE: XR CHEST 1V INDICATIONS: sob TECHNIQUE: One view of the chest was acquired. COMPARISON: [facility], CR, XR CHEST 2V, 07/29/2020, 9:51. FINDINGS: Surgical changes and devices: None. Lungs and pleura: Diffuse interstitial and airspace opacities again seen throughout the lungs. The degree of involvement appears mildly progressed since comparison study on 07/28/2020 2. No pleural effusions or pneumothorax. Mediastinum: Cardiomediastinal silhouette is unchanged. Bones and chest wall: No suspicious bony lesions. Overlying soft tissues appear unremarkable. IMPRESSION: Diffuse interstitial and alveolar opacities, mildly progressed since 07/29/2020. Causes include atypical infection or inflammation (including viral respiratory tract infections) and pulmonary edema. Dictated by: Lucho Mercado M.D. on 08/11/2020 at 17:01 ECG Data Attestation: I personally reviewed and interpreted this ECG as follows: Prior ECG tracings: available for review Interpretation: Normal sinus rhythm rate 113 p.r. interval 144 QRS 102 QTC [address] changes Q-wave noted in lead 3 similar to previous EKG MDM Narrative Medical decision making narrative: Upon arrival patient is acutely dyspneic seeking in just a few word sentences. Decision for nebulized treatment before [place] id a. Patient was placed in airborne precautions. He had almost immediate and significant improvement with nebulized albuterol. He has been on inhalers prednisone and antibiotics off and on for the last few weeks. He is progressively getting worse. He has an indeterminate troponin and elevated BNP. No known history of congestive heart failure although this was suspected when he was seen at [facility] a few weeks ago. He is not on Lasix on a regular basis. He has remote history of methamphetamine abuse but says it has been few years since he has used. At this time patient has failed outpatient treatment and needs to be admitted for IV steroids echocardiogram. [facility] accepts <Ventura Schuler DO - Last Filed: 08/12/20 03:42> Lab Data Labs: Lab Results 08/11/20 08/11/20 08/11/20 Range/Units 16:52 16:52 16:52 WBC 10.9 (4.5-11.0) X10^3/uL RBC 4.58 (4.5-5.9) X10^6/uL Hgb 12.6 L (13.5-17.5) g/dL Hct 38.4 L (41-53) % MCV 83.8 (80-100) fL MCH 27.5 (26-34) PG MCHC 32.8 (30-36) % RDW 14.8 (11.6-14.8) % Plt Count 366 (150-400) X10^3/uL Neut % (Auto) 67.9 (50-75) % Lymph % (Auto) 17.6 L (25-40) % [place] % (Auto) 11.1 (3-14) % Eos % (Auto) 2.5 (2-4) % Baso % (Auto) 0.9 (0-2) % Neut # (Auto) 7400 H (5531-5289) /uL Lymph # (Auto) 1900 (7848-7050) /uL [place] # (Auto) 1200 H (0-900) /uL Eos # (Auto) 300 (0-450) /uL Baso # (Auto) 100 (0-100) /uL Sodium (137-145) mmol/L Potassium (3.4-5.1) mmol/L Chloride (98-107) mmol/L Carbon Dioxide (22-32) mmol/L BUN (9-20) mg/dL Creatinine (0.66-1.25) mg/dL Estimated GFR (>60) mL/min BUN/Creatinine Ratio (6-22) Glucose (70-100) mg/dL Hemoglobin A1c (4.0-6.0) % Calcium (8.4-10.2) mg/dL Magnesium 2.2 (1.6-2.3) mg/dL Total Bilirubin (0.2-1.3) mg/dL AST (17-59) IU/L ALT (<50) IU/L Alkaline Phosphatase (38-126) U/L Total Creatine Kinase 320 H (55-170) U/L CK-MB (CK-2) 0.82 (<2.37) ng/mL CK-MB (CK-2) Rel Index 0.3 L (1.5-5.0) % Troponin I 0.041 H (0.01-0.034) ng/mL NT-Pro-B Natriuret Pep 3260 H (<125) pg/mL Total Protein (6.3-8.2) g/dL Albumin (3.5-5.0) g/dL Globulin (1.7-4.1) g/dL Albumin/Globulin Ratio (1.0-2.8) Procalcitonin 0.09 (<0.5) ng/mL U Opiates 300ng/mL cut (Negative) Ur Oxycodone Screen (Negative) Urine Methadone Screen (Negative) Ur Barbiturates Screen (Negative) U Tricyclic Antidepress (Negative) Ur Phencyclidine Scrn (Negative) Ur Amphetamines Screen (Negative) U Methamphetamines Scrn (Negative) Ur MDMA Scrn (Ecstasy) (Negative) U Benzodiazepines Scrn (Negative) Urine Cocaine Screen (Negative) U Marijuana (THC) Screen (Negative) COVID-19 PCR (Negative) 08/11/20 08/11/20 08/11/20 Range/Units 16:52 16:52 17:38 WBC (4.5-11.0) X10^3/uL RBC (4.5-5.9) X10^6/uL Hgb (13.5-17.5) g/dL Hct (41-53) % MCV (80-100) fL MCH (26-34) PG MCHC (30-36) % RDW (11.6-14.8) % Plt Count (150-400) X10^3/uL Neut % (Auto) (50-75) % Lymph % (Auto) (25-40) % [place] % (Auto) (3-14) % Eos % (Auto) (2-4) % Baso % (Auto) (0-2) % Neut # (Auto) (4312-0335) /uL Lymph # (Auto) (9097-4528) /uL [place] # (Auto) (0-900) /uL Eos # (Auto) (0-450) /uL Baso # (Auto) (0-100) /uL Sodium 133 L (137-145) mmol/L Potassium 4.3 (3.4-5.1) mmol/L Chloride 101 (98-107) mmol/L Carbon Dioxide 19 L (22-32) mmol/L BUN 11 (9-20) mg/dL Creatinine 1.04 (0.66-1.25) mg/dL Estimated GFR > 60.0 (>60) mL/min BUN/Creatinine Ratio 10.6 (6-22) Glucose 122 H (70-100) mg/dL Hemoglobin A1c 6.2 H (4.0-6.0) % Calcium 8.7 (8.4-10.2) mg/dL Magnesium (1.6-2.3) mg/dL Total Bilirubin 0.6 (0.2-1.3) mg/dL AST 44 (17-59) IU/L ALT 58 H (<50) IU/L Alkaline Phosphatase 131 H (38-126) U/L Total Creatine Kinase (55-170) U/L CK-MB (CK-2) (<2.37) ng/mL CK-MB (CK-2) Rel Index (1.5-5.0) % Troponin I (0.01-0.034) ng/mL NT-Pro-B Natriuret Pep (<125) pg/mL Total Protein 6.6 (6.3-8.2) g/dL Albumin 3.6 (3.5-5.0) g/dL Globulin 3.0 (1.7-4.1) g/dL Albumin/Globulin Ratio 1.2 (1.0-2.8) Procalcitonin (<0.5) ng/mL U Opiates 300ng/mL cut (Negative) Ur Oxycodone Screen (Negative) Urine Methadone Screen (Negative) Ur Barbiturates Screen (Negative) U Tricyclic Antidepress (Negative) Ur Phencyclidine Scrn (Negative) Ur Amphetamines Screen (Negative) U Methamphetamines Scrn (Negative) Ur MDMA Scrn (Ecstasy) (Negative) U Benzodiazepines Scrn (Negative) Urine Cocaine Screen (Negative) U Marijuana (THC) Screen (Negative) COVID-19 PCR Negative (Negative) 08/11/20 Range/Units 19:04 WBC (4.5-11.0) X10^3/uL RBC (4.5-5.9) X10^6/uL Hgb (13.5-17.5) g/dL Hct (41-53) % MCV (80-100) fL MCH (26-34) PG MCHC (30-36) % RDW (11.6-14.8) % Plt Count (150-400) X10^3/uL Neut % (Auto) (50-75) % Lymph % (Auto) (25-40) % [place] % (Auto) (3-14) % Eos % (Auto) (2-4) % Baso % (Auto) (0-2) % Neut # (Auto) (6750-8796) /uL Lymph # (Auto) (4812-3093) /uL [place] # (Auto) (0-900) /uL Eos # (Auto) (0-450) /uL Baso # (Auto) (0-100) /uL Sodium (137-145) mmol/L Potassium (3.4-5.1) mmol/L Chloride (98-107) mmol/L Carbon Dioxide (22-32) mmol/L BUN (9-20) mg/dL Creatinine (0.66-1.25) mg/dL Estimated GFR (>60) mL/min BUN/Creatinine Ratio (6-22) Glucose (70-100) mg/dL Hemoglobin A1c (4.0-6.0) % Calcium (8.4-10.2) mg/dL Magnesium (1.6-2.3) mg/dL Total Bilirubin (0.2-1.3) mg/dL AST (17-59) IU/L ALT (<50) IU/L Alkaline Phosphatase (38-126) U/L Total Creatine Kinase (55-170) U/L CK-MB (CK-2) (<2.37) ng/mL CK-MB (CK-2) Rel Index (1.5-5.0) % Troponin I (0.01-0.034) ng/mL NT-Pro-B Natriuret Pep (<125) pg/mL Total Protein (6.3-8.2) g/dL Albumin (3.5-5.0) g/dL Globulin (1.7-4.1) g/dL Albumin/Globulin Ratio (1.0-2.8) Procalcitonin (<0.5) ng/mL U Opiates 300ng/mL cut Positive H (Negative) Ur Oxycodone Screen Negative (Negative) Urine Methadone Screen Negative (Negative) Ur Barbiturates Screen Negative (Negative) U Tricyclic Antidepress Negative (Negative) Ur Phencyclidine Scrn Negative (Negative) Ur Amphetamines Screen Negative (Negative) U Methamphetamines Scrn Negative (Negative) Ur MDMA Scrn (Ecstasy) Negative (Negative) U Benzodiazepines Scrn Negative (Negative) Urine Cocaine Screen Negative (Negative) U Marijuana (THC) Screen Negative (Negative) COVID-19 PCR (Negative) Discharge Plan Departure Patient Disposition: Admitted As Inpatient Clinical Impression: Asthma exacerbation Qualifiers: Asthma severity: unspecified severity Asthma persistence: unspecified Qualified Code(s): J45.901 - Unspecified asthma with (acute) exacerbation CHF (congestive heart failure) Qualifiers: Heart failure type: unspecified Heart failure chronicity: unspecified Qualified Code(s): I50.9 - Heart failure, unspecified Discharge Date/Time: 08/11/20 20:09 Admit Date/Time: 08/11/20 20:03 Admit Provider: Larissa Baxter
[2020-08-11] MEDS: ALBUTEROL 2.5 MG/3 ML NEB (ADULT) 10 MG INH (16:58)
[2020-08-11 17:02] LABS: Add Manual Diff / Slide Review NO; Basophils Absolute Auto 100 /uL (0-100); Basophils Percent Auto 0.9 % (0-2); Eosinophils Absolute Auto 300 /uL (0-450); Eosinophils Percent Auto 2.5 % (2-4); Hematocrit 38.4 % (41-53); Hemoglobin 12.6 g/dL (13.5-17.5); Lymphocytes Absolute Auto 1900 /uL (1100-4500); Lymphocytes Percent Auto 17.6 % (25-40); Mean Corpuscular HGB Conc 32.8 % (30-36); Mean Corpuscular Hemoglobin 27.5 PG (26-34); Mean Corpuscular Volume 83.8 fL (80-100); Monocytes Absolute Auto 1200 /uL (0-900); Monocytes Percent Auto 11.1 % (3-14); Neutrophils Absolute Auto 7400 /uL (1500-7000); Neutrophils Percent Auto 67.9 % (50-75); Platelet Count 366 X10^3/uL (150-400); Red Blood Cell Count 4.58 X10^6/uL (4.5-5.9); Red Cell Distribution Width 14.8 % (11.6-14.8); White Blood Cell Count 10.9 X10^3/uL (4.5-11.0)
[2020-08-11 17:08] LABS: Creatine Kinase 320 U/L (55-170); Magnesium 2.2 mg/dL (1.6-2.3)
[2020-08-11] MEDS: ALBUTEROL/IPRATROPIUM 3 ML AMPUL INH (17:11)
[2020-08-11 17:15] LABS: COVID19 -Nasal RAPID Negative (Negative)
[2020-08-11 17:21] LABS: NT-proBNP (BNP-Adult 18+) 3260 pg/mL (<125); Troponin I 0.041 ng/mL (0.01-0.034)
[2020-08-11 17:23] LABS: CKMB % Relative Index 0.3 % (1.5-5.0); Creatine Kinase MB 0.82 ng/mL (<2.37)
[2020-08-11] MEDS: methylPREDNISolone 125 MG/2 ML VIAL IV (17:28)
[2020-08-11 17:41] LABS: Procalcitonin 0.09 ng/mL (<0.5)
[2020-08-11] MEDS: FUROSEMIDE 40 MG/4 ML VIAL IV (18:25)
[2020-08-11 19:18] LABS: UR Morphine/Opiate cutoff 300 Positive (Negative); Ur Creatinine Normal (Normal); Ur Specific Gravity Normal (Normal); Urine Amphetamines Negative (Negative); Urine Barbiturates Negative (Negative); Urine Benzodiazepines Negative (Negative); Urine Cocaine Negative (Negative); Urine MDMA Negative (Negative); Urine Methadone Negative (Negative); Urine Methamphetamines Negative (Negative); Urine Oxycodone Negative (Negative); Urine Phencyclidine Negative (Negative); Urine Tetrahydrocannabinol Negative (Negative); Urine Tricyclic Antidepressant Negative (Negative); Urine pH Normal (Normal)
[2020-08-11 19:28] LABS: Alanine Aminotransferase 58 IU/L (<50); Albumin 3.6 g/dL (3.5-5.0); Albumin Globulin Ratio 1.2 (1.0-2.8); Alkaline Phosphatase 131 U/L (38-126); Aspartate Aminotransferase 44 IU/L (17-59); BUN Creatinine Ratio 10.6 (6-22); Bilirubin Total 0.6 mg/dL (0.2-1.3); Blood Urea Nitrogen 11 mg/dL (9-20); Calcium 8.7 mg/dL (8.4-10.2); Carbon Dioxide 19 mmol/L (22-32); Chloride 101 mmol/L (98-107); Estimated Glomerular Filt Rate > 60.0 mL/min (>60); Glucose 122 mg/dL (70-100); HEMOLYSIS < 15 (0-50); Potassium 4.3 mmol/L (3.4-5.1); Sodium 133 mmol/L (137-145); Total Protein 6.6 g/dL (6.3-8.2)
[2020-08-11] MEDS: NITROGLYCERIN 0.4 MG SL TAB SL ×3 (22:06→23:43)
[2020-08-11] MEDS: ASPIRIN 81 MG CHEW TAB 324 MG (22:15)
[2020-08-11 22:18] LABS: Creatine Kinase 280 U/L (55-170)
[2020-08-11 22:30] LABS: Troponin I 0.053 ng/mL (0.01-0.034)
[2020-08-11 22:33] LABS: CKMB % Relative Index 0.3 % (1.5-5.0); Creatine Kinase MB 0.82 ng/mL (<2.37)
[2020-08-11 22:34] LABS: Hemoglobin A1C% w Est Avg Glu 6.2 % (4.0-6.0)
[2020-08-11 22:40] LABS: D Dimer 602 ng/mL (<230)
--- NOTE | 2020-08-11 23:10 | P.HP_ITS ---
History of Present Illness History of Present Illness Date Patient Seen: 08/11/20 Time Patient Seen: 22:00 Chief complaint: trouble breathing Narrative: Orion Painting is a 44-year-old male with bipolar disorder who presented with what initially was thought to be an asthma exacerbation found to be in congestive heart failure. He has had a history of previous methamphetamine use for which he states he quit 2 years ago. He presented being very short of breath, being unable to complete sentences, when I saw him his girlfriend stated this has been going on for over a month. She also stated he has been quite shaky and just very exhausted. Apparently the patient was seen at [facility] in I believe May for chest pain and shortness of breath and he was ruled out at that time. The patient states to me that he does ingest about 1 large dab of tobacco chew daily and drinks a 6 pack of beer daily. He states that he has never had issues with having to stop drinking and having withdrawal symptoms. He recently met up with his adoptive father side and found out that his father had at the age of 40 of a myocardial infarction. He has a br other with an atrial septal defect as well. He denies headaches, neck pain, abdominal pain, dysuria, diarrhea or constipation, upper lower extremity neuropathies. While in the emergency department they did do labs and he had a mildly elevated troponin of 0.041 and a proBNP of 3260. During my examination of the patient, when I asked him to turn over to listen to his lungs, he stated he started to have cramps and started pointing to the center of his chest as well as left side of his chest. When I requestested he turn over to auscultate his lungs, he sat up he became quite diaphoretic and and said he started complaining of cramping and hold and massaging is mid epigastric to left side of his chest. We noticed he was diaphoretic on his back. I ordered a stat EKG, new cardiac enzymes and n ew daytime labs, had nursing administer nitroglycerin and O2, and his chest pain was relieved. His troponin did increase to 0.053. I paged Dr. 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 Discussed with Dr. Amador who accepted the patient. Patient is afebrile, blood pressure 135/76, heart rate 101, respiratory rate 16, oxygen saturation 97% on room air, he weighs 112.5 kg with a BMI of 49-,1/2. WBC is 10.9, RBC 4.58, hemoglobin, hematocrit, platelet count 366, D-dimer was 6 of 2, sodium 133, potassium 4.3, chloride 101, CO2 19, creatinine 1.04, BUN 11, GFR greater than 60, glucose is 122 with a A1c of 6.2, calcium 8.7, magnesium 2.2, total bilirubin 0.6, AST 44, ALT 58, alk phos 131, total creatinine kinase is 280, CK-MB is 0.82, troponin 0.53, proBNP 3260, procalcitonin was 0.9, drug screen positive for opioites, COVID-19 screen was negative. Patient History Medical History (Updated 08/11/20 @ 23:35 by BASHIR Stevens) Alcohol dependence (Acute) Erysipelas (Inactive) Methamphetamine abuse (Inactive) Surgical History (Updated 08/11/20 @ 23:35 by BASHIR Stevens) No history of previous surgery (Acute) Family & Social History Family History (Updated 08/11/20 @ 23:36 by BASHIR Stevens) Father Myocardial infarction Mother Cancer Social History: household members significant other Prior Living Arrangements House Safety & Behavioral: Feels Safe in Current Yes Environment Been Physically Hurt or No Threatened By a Person Suicidal Ideation Description None Suicide Plan Description No Plan Tobacco & Substance use: Smoking Status Former smoker alcohol intake current alcohol intake frequency 3 or more drinks per day Substance Use Type former substance user,methamphetamine Meds Home Medications and Allergies Home Medications Medication Instructions Recorded Confirmed Type prazosin 2 mg PO HS #0 10/01/17 08/11/20 History risperidone [Risperdal] 1 mg PO HS #0 10/01/17 08/11/20 History sulfamethoxazole-trimethoprim 1 tab PO BID #20 tab 10/01/17 Rx albuterol sulfate 90 mcg INHALATION Q4H PRN 08/11/20 08/11/20 History azithromycin 250 mg PO DAILY 08/11/20 08/11/20 History divalproex 500 mg PO DAILY 08/11/20 08/11/20 History prednisone 20 mg PO BID 08/11/20 08/11/20 History Allergies Allergy/AdvReac Type Severity Reaction Status Date / Time carrot [CARROT] Allergy Severe Swelling Verified 06/21/19 00:10 of Lip/Tongue/Throat Review of Systems Review of Systems ROS: Yes All systems reviewed with the patient and are negative except as otherwise documented Exam Vital Signs (past 8 hours): - 08/11/20 16:38 08/11/20 17:04 08/11/20 17:13 Temperature 97.5 F L Pulse Rate 111 H 110 H 109 H Respiratory Rate 24 20 Blood Pressure 124/68 Pulse Oximetry 97 94 95 08/11/20 17:29 08/11/20 17:30 08/11/20 20:00 Temperature 97.7 F Pulse Rate 115 H 115 H 108 H Respiratory Rate 32 H 38 H 16 Blood Pressure 131/83 Pulse Oximetry 97 98 97 08/11/20 22:06 Temperature Pulse Rate 101 H Respiratory Rate Blood Pressure 135/76 Pulse Oximetry Oxygen Delivery Method Nasal Cannula Oxygen Flow Rate 0 Narrative Exam Narrative: Gen: Alert, oriented, morbidly obese 44 y.o. male, in moderate distress HEENT: normocephalic, atraumatic, conjunctiva clear, sclera non-icteric, oral mucosa pink and moist Neck: supple, full ROM, no JVD, trachea is midline Resp: Lungs CTA, non-labored breathing CV: Tachy but regular, no murmur or rubs Abd: Obese, soft, non-tender, normoactive BTs Skin: no lesions or rashes, dry and intact Neuro: Alert and oriented X 4 w/no focal deficits. Speech clear and coherent. Extremities: moves all 4 extremities, is ambulatory, negative Francia?s sign Psyche: normal mood and affect. Objective Labs Result Diagrams: 08/11/20 16:52 08/11/20 17:38 Labs: Laboratory Results - last 24 hr 08/11/20 08/11/20 08/11/20 16:52 16:52 16:52 WBC 10.9 RBC 4.58 Hgb 12.6 L Hct 38.4 L MCV 83.8 MCH 27.5 MCHC 32.8 RDW 14.8 Plt Count 366 Neut % (Auto) 67.9 Lymph % (Auto) 17.6 L [place] % (Auto) 11.1 Eos % (Auto) 2.5 Baso % (Auto) 0.9 Neut # (Auto) 7400 H Lymph # (Auto) 1900 [place] # (Auto) 1200 H Eos # (Auto) 300 Baso # (Auto) 100 D-Dimer Sodium Potassium Chloride Carbon Dioxide BUN Creatinine Estimated GFR BUN/Creatinine Ratio Glucose Hemoglobin A1c Calcium Magnesium 2.2 Total Bilirubin AST ALT Alkaline Phosphatase Total Creatine Kinase 320 H CK-MB (CK-2) 0.82 CK-MB (CK-2) Rel Index 0.3 L Troponin I 0.041 H NT-Pro-B Natriuret Pep 3260 H Total Protein Albumin Globulin Albumin/Globulin Ratio Procalcitonin 0.09 U Opiates 300ng/mL cut Ur Oxycodone Screen Urine Methadone Screen Ur Barbiturates Screen U Tricyclic Antidepress Ur Phencyclidine Scrn Ur Amphetamines Screen U Methamphetamines Scrn Ur MDMA Scrn (Ecstasy) U Benzodiazepines Scrn Urine Cocaine Screen U Marijuana (THC) Screen COVID-19 PCR 08/11/20 08/11/20 08/11/20 16:52 16:52 17:38 WBC RBC Hgb Hct MCV MCH MCHC RDW Plt Count Neut % (Auto) Lymph % (Auto) [place] % (Auto) Eos % (Auto) Baso % (Auto) Neut # (Auto) Lymph # (Auto) [place] # (Auto) Eos # (Auto) Baso # (Auto) D-Dimer Sodium 133 L Potassium 4.3 Chloride 101 Carbon Dioxide 19 L BUN 11 Creatinine 1.04 Estimated GFR > 60.0 BUN/Creatinine Ratio 10.6 Glucose 122 H Hemoglobin A1c 6.2 H Calcium 8.7 Magnesium Total Bilirubin 0.6 AST 44 ALT 58 H Alkaline Phosphatase 131 H Total Creatine Kinase CK-MB (CK-2) CK-MB (CK-2) Rel Index Troponin I NT-Pro-B Natriuret Pep Total Protein 6.6 Albumin 3.6 Globulin 3.0 Albumin/Globulin Ratio 1.2 Procalcitonin U Opiates 300ng/mL cut Ur Oxycodone Screen Urine Methadone Screen Ur Barbiturates Screen U Tricyclic Antidepress Ur Phencyclidine Scrn Ur Amphetamines Screen U Methamphetamines Scrn Ur MDMA Scrn (Ecstasy) U Benzodiazepines Scrn Urine Cocaine Screen U Marijuana (THC) Screen COVID-19 PCR Negative 10/02/2508/11/20 08/11/20 19:04 22:00 22:18 WBC RBC Hgb Hct MCV MCH MCHC RDW Plt Count Neut % (Auto) Lymph % (Auto) [place] % (Auto) Eos % (Auto) Baso % (Auto) Neut # (Auto) Lymph # (Auto) [place] # (Auto) Eos # (Auto) Baso # (Auto) D-Dimer 602 H Sodium Potassium Chloride Carbon Dioxide BUN Creatinine Estimated GFR BUN/Creatinine Ratio Glucose Hemoglobin A1c Calcium Magnesium Total Bilirubin AST ALT Alkaline Phosphatase Total Creatine Kinase 280 H CK-MB (CK-2) 0.82 CK-MB (CK-2) Rel Index 0.3 L Troponin I 0.053 H NT-Pro-B Natriuret Pep Total Protein Albumin Globulin Albumin/Globulin Ratio Procalcitonin U Opiates 300ng/mL cut Positive H Ur Oxycodone Screen Negative Urine Methadone Screen Negative Ur Barbiturates Screen Negative U Tricyclic Antidepress Negative Ur Phencyclidine Scrn Negative Ur Amphetamines Screen Negative U Methamphetamines Scrn Negative Ur MDMA Scrn (Ecstasy) Negative U Benzodiazepines Scrn Negative Urine Cocaine Screen Negative U Marijuana (THC) Screen Negative COVID-19 PCR Assessment & Plan Assessment & Plan narrative: During my assessment of the patient and due to sudden and acute onset chest pain it was decided to work the patient up for chest pain and to transfer the patient for further evaluation and management. He will be placed on a heparin drip with a heparin bolus, administered supplemental oxygen at 2 L and be given nitroglycerin as needed for chest pain. The patient will be transported by ambulance to [facility] by [facility] transport for further evaluation and management by the medical service with cardiology consulting. Discussed the case with Gerhard Reyes, hot tamale worker and Marjorie, Hospitalist. Critical Care Time Critical Care Time: Yes Total Critical Care Time: 60 minutes Attestation: The high probability of a clinically significant, sudden or life threatening deterioration of the system(s) required my full and direct attention, intervention and personal management. The aggregate critical care time was 60 minutes. This time is in addition to time spent performing reported procedures but includes the following: Data Review and interpretation Patient assessment and monitoring of vital signs Documentation Medication orders and management COVID-19 COVID-19 status: Negative Result date/Date tested (Pos, Neg/Pending): 08/11/20
[2020-08-11 23:43] LABS: Hematocrit 38.4 % (41-53); Hemoglobin 12.4 g/dL (13.5-17.5)
--- NOTE | 2020-08-11 23:44 | PM.DS.1 ---
History of Present Illness History of Present Illness Chief complaint: trouble breathing Narrative: Orion Painting is a 44-year-old male with bipolar disorder who presented with what initially was thought to be an asthma exacerbation found to be in congestive heart failure. He has had a history of previous methamphetamine use for which he states he quit 2 years ago. He presented being very short of breath, being unable to complete sentences, when I saw him his girlfriend stated this has been going on for over a month. She also stated he has been quite shaky and just very exhausted. Apparently the patient was seen at [facility] in I believe May for chest pain and shortness of breath and he was ruled out at that time. The patient states to me that he does ingest about 1 large dab of tobacco chew daily and drinks a 6 pack of beer daily. He states that he has never had issues with having to stop drinking and having withdrawal symptoms. He recently met up with his adoptive father side and found out that his father had at the age of 40 of a myocardial infarction. He has a brother with an atrial septal defect as well. He denies headaches, neck pain, abdominal pain, dysuria, diarrhea or constipation, upper lower extremity neuropathies. Discharge Providers Provider Date of admission: 08/11/20 20:03 Discharge Date: 08/11/20 Consults: 08/11/20 16:48 Consult to Respiratory Therapy Evaluate & Treat Comment: Physician Instructions: Evaluate and treat Discharge provider: BASHIR Stevens Summary Hospital Course Discharge Diagnosis: COPD exacerbation, new CHF onset, ACS rule out Hospital Course: While in the emergency department they did do labs and he had a mildly elevated troponin of 0.041 and a proBNP of 3260. During my examination of the patient, when I asked him to turn over to listen to his lungs, he stated he started to have cramps and started pointing to the center of his chest as well as left side of his chest. When I requestested he turn over to auscultate his lungs, he sat up he became quite diaphoretic and and said he started complaining of cramping and hold and massaging is mid epigastric to left side of his chest. We noticed he was diaphoretic on his back. I ordered a stat EKG, new cardiac enzymes and new daytime labs, had nursing administer nitroglycerin and O2, and his chest pain was relieved. His troponin did increase to 0.053. I paged Dr. Reyes, cardiology on-call and it was determined that he was high risk, request he be started on heparin drip, transfer the patient and that he would go the the laborer pipeline in the am. Discussed with Dr. Amador who accepted the patient. Patient is afebrile, blood pressure 135/76, heart rate 101, respiratory rate 16, oxygen saturation 97% on room air, he weighs 112.5 kg with a BMI of 49-,1/2. WBC is 10.9, RBC 4.58, hemoglobin, hematocrit, platelet count 366, D-dimer was 6 of 2, sodium 133, potassium 4.3, chloride 101, CO2 19, creatinine 1.04, BUN 11, GFR greater than 60, glucose is 122 with a A1c of 6.2, calcium 8.7, magnesium 2.2, total bilirubin 0.6, AST 44, ALT 58, alk phos 131, total creatinine kinase is 280, CK-MB is 0.82, troponin 0.53, proBNP 3260, procalcitonin was 0.9, drug screen positive for opioits, COVID-19 screen was negative. Exam Vital Signs (past 8 hours): - 08/11/20 16:38 08/11/20 17:04 08/11/20 17:13 Temperature 97.5 F L Pulse Rate 111 H 110 H 109 H Respiratory Rate 24 20 Blood Pressure 124/68 Pulse Oximetry 97 94 95 08/11/20 17:29 08/11/20 17:30 08/11/20 20:00 Temperature 97.7 F Pulse Rate 115 H 115 H 108 H Respiratory Rate 32 H 38 H 16 Blood Pressure 131/83 Pulse Oximetry 97 98 97 08/11/20 22:06 08/11/20 23:38 Temperature Pulse Rate 101 H 115 H Respiratory Rate Blood Pressure 135/76 128/85 Pulse Oximetry Oxygen Delivery Method Nasal Cannula Oxygen Flow Rate 0 Narrative Exam Narrative: See today's H&P. Objective Labs Result Diagrams: 08/11/20 23:32 08/11/20 17:38 Labs: Laboratory Results - last 24 hr 08/11/20 08/11/20 08/11/20 16:52 16:52 16:52 WBC 10.9 RBC 4.58 Hgb 12.6 L Hct 38.4 L MCV 83.8 MCH 27.5 MCHC 32.8 RDW 14.8 Plt Count 366 Neut % (Auto) 67.9 Lymph % (Auto) 17.6 L [place] % (Auto) 11.1 Eos % (Auto) 2.5 Baso % (Auto) 0.9 Neut # (Auto) 7400 H Lymph # (Auto) 1900 [place] # (Auto) 1200 H Eos # (Auto) 300 Baso # (Auto) 100 D-Dimer Sodium Potassium Chloride Carbon Dioxide BUN Creatinine Estimated GFR BUN/Creatinine Ratio Glucose Hemoglobin A1c Calcium Magnesium 2.2 Total Bilirubin AST ALT Alkaline Phosphatase Total Creatine Kinase 320 H CK-MB (CK-2) 0.82 CK-MB (CK-2) Rel Index 0.3 L Troponin I 0.041 H NT-Pro-B Natriuret Pep 3260 H Total Protein Albumin Globulin Albumin/Globulin Ratio Procalcitonin 0.09 U Opiates 300ng/mL cut Ur Oxycodone Screen Urine Methadone Screen Ur Barbiturates Screen U Tricyclic Antidepress Ur Phencyclidine Scrn Ur Amphetamines Screen U Methamphetamines Scrn Ur MDMA Scrn (Ecstasy) U Benzodiazepines Scrn Urine Cocaine Screen U Marijuana (THC) Screen COVID-19 PCR 08/11/20 08/11/20 08/11/20 16:52 16:52 17:38 WBC RBC Hgb Hct MCV MCH MCHC RDW Plt Count Neut % (Auto) Lymph % (Auto) [place] % (Auto) Eos % (Auto) Baso % (Auto) Neut # (Auto) Lymph # (Auto) [place] # (Auto) Eos # (Auto) Baso # (Auto) D-Dimer Sodium 133 L Potassium 4.3 Chloride 101 Carbon Dioxide 19 L BUN 11 Creatinine 1.04 Estimated GFR > 60.0 BUN/Creatinine Ratio 10.6 Glucose 122 H Hemoglobin A1c 6.2 H Calcium 8.7 Magnesium Total Bilirubin 0.6 AST 44 ALT 58 H Alkaline Phosphatase 131 H Total Creatine Kinase CK-MB (CK-2) CK-MB (CK-2) Rel Index Troponin I NT-Pro-B Natriuret Pep Total Protein 6.6 Albumin 3.6 Globulin 3.0 Albumin/Globulin Ratio 1.2 Procalcitonin U Opiates 300ng/mL cut Ur Oxycodone Screen Urine Methadone Screen Ur Barbiturates Screen U Tricyclic Antidepress Ur Phencyclidine Scrn Ur Amphetamines Screen U Methamphetamines Scrn Ur MDMA Scrn (Ecstasy) U Benzodiazepines Scrn Urine Cocaine Screen U Marijuana (THC) Screen COVID-19 PCR Negative 08/11/20 08/11/20 08/11/20 19:04 22:00 22:18 WBC RBC Hgb Hct MCV MCH MCHC RDW Plt Count Neut % (Auto) Lymph % (Auto) [place] % (Auto) Eos % (Auto) Baso % (Auto) Neut # (Auto) Lymph # (Auto) [place] # (Auto) Eos # (Auto) Baso # (Auto) D-Dimer 602 H Sodium Potassium Chloride Carbon Dioxide BUN Creatinine Estimated GFR BUN/Creatinine Ratio Glucose Hemoglobin A1c Calcium Magnesium Total Bilirubin AST ALT Alkaline Phosphatase Total Creatine Kinase 280 H CK-MB (CK-2) 0.82 CK-MB (CK-2) Rel Index 0.3 L Troponin I 0.053 H NT-Pro-B Natriuret Pep Total Protein Albumin Globulin Albumin/Globulin Ratio Procalcitonin U Opiates 300ng/mL cut Positive H Ur Oxycodone Screen Negative Urine Methadone Screen Negative Ur Barbiturates Screen Negative U Tricyclic Antidepress Negative Ur Phencyclidine Scrn Negative Ur Amphetamines Screen Negative U Methamphetamines Scrn Negative Ur MDMA Scrn (Ecstasy) Negative U Benzodiazepines Scrn Negative Urine Cocaine Screen Negative U Marijuana (THC) Screen Negative COVID-19 PCR 08/11/20 23:32 WBC RBC Hgb 12.4 L Hct 38.4 L MCV MCH MCHC RDW Plt Count Neut % (Auto) Lymph % (Auto) [place] % (Auto) Eos % (Auto) Baso % (Auto) Neut # (Auto) Lymph # (Auto) [place] # (Auto) Eos # (Auto) Baso # (Auto) D-Dimer Sodium Potassium Chloride Carbon Dioxide BUN Creatinine Estimated GFR BUN/Creatinine Ratio Glucose Hemoglobin A1c Calcium Magnesium Total Bilirubin AST ALT Alkaline Phosphatase Total Creatine Kinase CK-MB (CK-2) CK-MB (CK-2) Rel Index Troponin I NT-Pro-B Natriuret Pep Total Protein Albumin Globulin Albumin/Globulin Ratio Procalcitonin U Opiates 300ng/mL cut Ur Oxycodone Screen Urine Methadone Screen Ur Barbiturates Screen U Tricyclic Antidepress Ur Phencyclidine Scrn Ur Amphetamines Screen U Methamphetamines Scrn Ur MDMA Scrn (Ecstasy) U Benzodiazepines Scrn Urine Cocaine Screen U Marijuana (THC) Screen COVID-19 PCR Discharge Assessment & Plan Assessment and Plan Assessment: Suspected ACS New diagnosis of congestive heart failure COPD exacerbation Plan of Treatment: Initially the plan was to order an echocardiogram and a CT angio of the chest to rule out PE. Due to the patient's sudden onset of acute chest pain, rising troponins, and his other risk factors it was decided that the patient be transferred to [facility] for further evaluation and management. Discharge Plan Discharge Plan Patient Disposition: [facility] Under care of provider: Dr. Amador, Hospitalist, Dr. Reyes, Cardiology Discharge orders & Medications Prescriptions: No Action risperidone [Risperdal] 1 MG tablet 1 mg PO HS Qty: 0 RF: 0 prazosin 2 MG capsule 2 mg PO HS Qty: 0 RF: 0 sulfamethoxazole-trimethoprim 800 MG/160 MG tablet 1 tab PO BID Qty: 20 RF: 0 azithromycin 250 mg tablet 250 mg PO DAILY RF: 0 divalproex 500 mg tablet extended release 24 hr 500 mg PO DAILY RF: 0 albuterol sulfate 90 mcg/actuation HFA aerosol inhaler 90 mcg INHALATION Q4H PRN (Reason: Shortness Of Breath) RF: 0 prednisone 20 MG tablet 20 mg PO BID RF: 0 Diet/Activity/Treatments Diet: Nothing by Mouth
[2020-08-11 23:48] LABS: INR 1.4 (0.9-1.3); Prothrombin Time 15.7 SECONDS (10.1-12.7)
[2020-08-11 23:50] LABS: PTT Partial Thromboplastin Tim 31 SECONDS (26.4-36.2)
[2020-08-11] MEDS: MORPHINE 2 MG/ML INJ IV (23:56)
[2020-08-12] MEDS: HEPARIN DRIP 25,000 UNIT/500 ML IV.SOLN 20 UNIT IV (00:03)
[2020-08-12] MEDS: HEPARIN 5,000 UNIT/ML VIAL 5000 UNIT IV (00:08)
[2020-08-12 00:30] VITALS: BP 117/74; PULSE 94; RESP 26; O2SAT 99
[2020-08-12] MEDS: MORPHINE 2 MG/ML INJ IV (00:30)
--- NOTE | 2020-08-12 00:37 | PC.NURSE ---
Pt . C/O CP & abdominal pain. Medicated with 2 doses of 2 mg. of Morphine. 2 EMS crews are here, report given to EMS personnel Austyn Olmos RN in. [facility].
[2020-08-12] MEDS: NITROGLYCERIN 0.4 MG SL TAB SL (00:49)
--- NOTE | 2020-08-12 00:50 | PC.NURSE ---
Pt. leaving now @ 0050, prior to get out of his room C/O chest pain again 04/17. medicated with another dose of 0.04 mg. of nitro. Also left with a Heparin gtt.
[2020-08-13 13:13] LABS: Acinetobacter baumannii Not Detected (Not Detect); Candida albicans Not Detected (Not Detect); Candida glabrata Not Detected (Not Detect); Candida krusei Not Detected (Not Detect); Candida parapsilosis Not Detected (Not Detect); Candida tropicalis Not Detected (Not Detect); E. coli Not Detected (Not Detect); Enterobacter cloacae complex Not Detected (Not Detect); Enterobacteriaceae species Not Detected (Not Detect); Enterococcus species Not Detected (Not Detect); Haemophilus influenzae Not Detected (Not Detect); Listeria monocytogenes Not Detected (Not Detect); Neisseria meningitidis Not Detected (Not Detect); Proteus species Not Detected (Not Detect); Pseudomonas aeruginosa Not Detected (Not Detect); Serratia marcescens Not Detected (Not Detect); Staphylococcus species Not Detected (Not Detect); Streptococcus agalactiae (Gr B Not Detected (Not Detect); Streptococcus pneumonia Not Detected (Not Detect); Streptococcus pyogenes (Gr A) Not Detected (Not Detect); Streptococcus species Not Detected (Not Detect)
== END 2020-08-12 00:50 | disposition short-term general hospital (02) | DRG 292 ==
LOC: ED 19:45 → AC 20:04
PROVIDERS: Admitting Provider Nurse Practitioner Family; Emergency Provider Emergency Medicine; Referring Provider Emergency Medicine; Visit Provider Nurse Practitioner Family
DX: I50.9 Heart failure, unspecified (principal); J44.1 Chronic obstructive pulmonary disease with (acute) exacerbation; I24.9 Acute ischemic heart disease, unspecified; F31.9 Bipolar disorder, unspecified; F10.20 Alcohol dependence, uncomplicated; Z72.0 Tobacco use; Z11.59 Encounter for screening for other viral diseases
CPT/HCPCS: 36415; 36592; 71045; 80053; 80305; 82550; 82553; 83036; 83735; 83880; 84145; 84484; 85014; 85018; 85025; 85379; 85610; 85730; 87040; 87150; 87205; 87635; 93005; 94640; 96374; 96375; 99285; J1644; J1940; J2270; J2930; J7613

== ENCOUNTER 2020-10-01 00:35 | Emergency (ER) | payer MEDICAID, SELFPAY ==
[2020-08-11 20:16] VITALS: BMI 49.5
[2020-10-01] VITALS (53 sets, daily range): BP systolic 91–131; BP diastolic 53–87; PULSE 75–103; RESP 13–49; TEMP 36.4; O2SAT 94–100; BMI 31.1
--- NOTE | 2020-10-01 00:39 | DI.RAD.S_ITS ---
PROCEDURE: XR CHEST 1V INDICATIONS: chest pain, cough TECHNIQUE: One view of the chest was acquired. COMPARISON: [facility], CR, XR CHEST 1V, 08/11/2020, 17:35. FINDINGS: Surgical changes and devices: None. Lungs and pleura: Previously described diffuse interstitial and alveolar opacities have resolved. No focal consolidations. No pleural effusions or pneumothorax. Mediastinum: Mediastinal contours appear normal. Heart size is normal. Bones and chest wall: No suspicious bony lesions. Overlying soft tissues appear unremarkable. IMPRESSION: Chest without acute cardiopulmonary abnormalities. No focal airspace disease. No significant discrepancy with the production supervisor off shift radiology preliminary report. Dictated by: Edouard Ghosh M.D. on 10/01/2020 at 8:19 Approved by: Edouard Ghosh M.D. on 10/01/2020 at 8:20
--- NOTE | 2020-10-01 00:45 | ED.CHESTPAIN ---
HPI - Chest Pain General Chief Complaint: Chest Pain Stated Complaint: chest pain Time Seen by Provider: 10/01/20 00:35 Source: patient Mode of arrival: Wheelchair Limitations: no limitations History of Present Illness HPI narrative: 44-year-old male former smoker with history of asthma and CHF presents with a chief complaint of severe left anterior chest pressure that woke him up about 30 minutes ago. His pain is sharp and stabbing and worse with deep breaths and palpation. He has been coughing and hacking for about 1 month and states he has had nausea and vomiting over the course of the day. He denies any fever chills. He denies exposure to persons known to of COVID. He denies any exertional worsening of his symptoms. He denies radiation of the pain or associated diaphoresis. Related Data Home Medications Medication Instructions Recorded Confirmed risperidone [Risperdal] 1 mg PO HS #0 10/01/17 10/01/20 albuterol sulfate 90 mcg INHALATION Q4H PRN 08/11/20 10/01/20 divalproex 500 mg PO DAILY 08/11/20 10/01/20 furosemide 20 mg PO DAILY 10/01/20 10/01/20 losartan 12.5 mg PO BEDTIME 10/01/20 10/01/20 metoprolol succinate 25 mg PO DAILY 10/01/20 10/01/20 spironolactone 25 mg PO DAILY 10/01/20 10/01/20 Allergies Allergy/AdvReac Type Severity Reaction Status Date / Time carrot [CARROT] Allergy Severe Swelling Verified 06/21/19 00:10 of Lip/Tongue/Throat Review of Systems Constitutional Constitutional: Denies chills, Denies fatigue, Denies fever(s), Denies frequent falls, Denies lethargy and Denies weakness Eyes Eyes: Denies change in vision, Denies eye discharge, Denies irritation and Denies loss of vision ENT Ears, Nose, Mouth, and Throat: Denies change in voice, Denies dizziness, Denies neck pain, Denies sore throat and Denies throat swelling Cardiovascular Cardiovascular: Reports chest pain, Denies irregular heart rhythm, Denies lightheadedness, Denies palpitations, Reports dyspnea, Denies dyspnea on exertion and Denies orthopnea Respiratory Respiratory: Denies cough, Reports pain on inspiration, Reports dyspnea, Denies dyspnea on exertion and Denies wheezing Gastrointestinal Gastrointestinal: Denies abdominal pain, Denies change in bowel habits, Denies diarrhea, Reports nausea and Reports vomiting Musculoskeletal Musculoskeletal: Denies neck pain and Denies numbness Integumentary/Breasts Skin/Breast: Denies pruritus, Denies erythema, Denies rash and Denies wounds Neurologic Neurologic: Denies behavioral changes, Denies confusion, Denies dizziness, Denies frequent falls, Denies loss of vision, Denies numbness and Denies weakness Psychiatric Psychiatric: Denies anxiety, Denies behavioral changes, Denies confusion, Denies depression, Denies homicidal ideation and Denies suicidal ideation Endocrine Endocrine: Denies fatigue, Denies flushing and Denies palpitations Hematologic/Lymphatic Hematologic/Lymphatic: Denies easy bruising Allergic/Immunologic Allergic/Immunologic: Denies urticaria, Denies throat swelling and Denies wheezing Patient History Medical History Alcohol dependence Erysipelas Methamphetamine abuse Surgical History No history of previous surgery Family History Father Myocardial infarction Mother Cancer Social History household members: significant other Smoking Status: Former smoker alcohol intake: current Smoking Status: Former smoker alcohol intake frequency: 3 or more drinks per day Substance Use Type: former substance user and methamphetamine Exam Narrative Exam Narrative: GENERAL: [44] year old patient appears stated age. Well-nourished, well-developed patient, in obvious distress, anxious, clutching his left chest, rapid, shallow breathing HEAD: Atraumatic. Normocephalic. EYES: Pupils equal round and reactive. Extraocular motions intact. No scleral icterus. No injection or drainage. ENT: Nose without bleeding, purulent drainage. Throat without erythema, tonsillar hypertrophy or exudate. Airway patent. NECK: Trachea midline. Non tender CARDIOVASCULAR: Regular rate and rhythm without murmurs, gallops, or rubs. Anterior chest pain significantly worse with palpation RESPIRATORY: Clear to auscultation. Breath sounds equal bilaterally. No wheezes, rales, or rhonchi. GASTROINTESTINAL: Abdomen soft, non-tender, nondistended. EXTREMITIES: No edema or joint tenderness. BACK: Nontender without deformity or crepitance. No flank tenderness. NEURO: AOx3. SKIN: No rash or erythema of visible areas Initial Vital Signs Initial Vital Signs: Vital Signs Temperature 97.6 F 10/01/20 00:39 Pulse Rate 103 H 10/01/20 00:39 Respiratory Rate 34 H 10/01/20 00:39 Blood Pressure 131/80 10/01/20 00:39 Pulse Oximetry 100 10/01/20 00:39 Course Course Course Narrative: we have now received records from [facility]. Recent echo notes 10-15%. Patient had heart cath on 08/11 which showed clean arteries. Orders Ordered: ED Orders 10/01/20 00:39 XR chest 1V Stat Complete Blood Count AUTO DIFF Stat Comprehensive Metabolic Panel Stat D Dimer Stat Lipase Stat NT-proBNP (BNP-Adult 18+) Stat Prothrombin Time INR Stat Troponin & CK Cardiac Panel Stat EKG-12 Lead Stat 10/01/20 00:40 COVID19 Stat 10/01/20 01:38 CT angio chest PE protocol Stat 10/01/20 02:48 Creatinine & eGFR Stat Troponin I Stat 10/01/20 05:00 Hemoglobin and Hematocrit DAILY 10/01/20 05:27 Urine Drug Screen, Rapid Stat 10/02/20 05:00 Hemoglobin and Hematocrit DAILY Sodium Chloride (Normal Saline 0.9%) 1,000 mls @ 150 mls/hr IV CONT TRANG Last Admin: 10/01/20 00:58 Dose: 150 mls/hr Documented by: PILAR Heparin Sodium/Dextrose (Heparin Drip) 25,000 unit in 500 mls @ 20 mls/hr IV CONT TRANG; Protocol Last Admin: 10/01/20 05:06 Dose: 1,000 units/hr, 20 mls/hr Documented by: Discontinued Medications Aspirin (Aspirin 81 Mg Chew Tab) 324 mg PO NOW ONE Stop: 10/01/20 00:39 Last Admin: 10/01/20 01:01 Dose: 324 mg Documented by: PILAR Heparin Sodium (Porcine) (Heparin 5,000 Unit/Ml Vial) 5,000 unit IV NOW ONE Stop: 10/01/20 04:45 Last Admin: 10/01/20 05:05 Dose: 5,000 unit Documented by: Hydromorphone HCl (Hydromorphone 0.5 Mg Inj) 0.5 mg IV NOW ONE Stop: 10/01/20 02:28 Last Admin: 10/01/20 02:49 Dose: 0.5 mg Documented by: Hydromorphone HCl (Hydromorphone 0.5 Mg Inj) 0.5 mg IV NOW ONE Stop: 10/01/20 04:12 Last Admin: 10/01/20 04:33 Dose: 0.5 mg Documented by: Ketorolac Tromethamine (Ketorolac 60 Mg/2 Ml Vial) 15 mg IV NOW ONE Stop: 10/01/20 00:39 Last Admin: 10/01/20 00:59 Dose: 15 mg Documented by: PILAR Nitroglycerin (Nitroglycerin Oint 1 Inch/Gm Oint...G.) 0.5 inch TOP NOW ONE Stop: 10/01/20 00:39 Last Admin: 10/01/20 00:59 Dose: Not Given Documented by: PILAR Nitroglycerin (Nitroglycerin 0.4 Mg Sl Tab) 0.4 mg SL [id number] PRN PRN Reason: Chest Pain Last Admin: 10/01/20 02:08 Dose: 0.4 mg Documented by: Admin: 10/01/20 02:03 Dose: 0.4 mg Documented by: Admin: 10/01/20 01:45 Dose: 0.4 mg Documented by: RAUL Ondansetron HCl (Ondansetron 4 Mg/2 Ml Inj) 4 mg IV NOW ONE Stop: 10/01/20 00:39 Last Admin: 10/01/20 00:59 Dose: 4 mg Documented by: PILAR Consultations Consultation #1: call to cardio to discuss case. Recent cath is reassuring, but given profoundly low EF with rising troponin he will require hospitalization for further evaluation Consultation #2: call to our hospitalist who is requests transfer given rise in trop, ongoing pain Consultation #3: Dr. Solomon ([facility]) happy to accept and requests heparin bolus and drip. Bed available at 0700 EMS to arrive at 0615 Vital Signs Vital signs: Vital Signs - 8 hr 10/01/20 00:39 10/01/20 00:57 10/01/20 01:00 Temperature 97.6 F Pulse Rate 103 H 96 H 95 H Respiratory Rate 34 H 24 Blood Pressure 131/80 115/77 Pulse Oximetry 100 100 100 10/01/20 01:30 10/01/20 01:45 10/01/20 01:50 Temperature Pulse Rate 95 H 95 H 94 H Respiratory Rate 15 27 H 32 H Blood Pressure 115/85 110/87 119/73 Pulse Oximetry 99 98 96 10/01/20 02:02 10/01/20 02:03 10/01/20 02:04 Temperature Pulse Rate 91 H 90 91 H Respiratory Rate 28 H Blood Pressure 119/73 111/67 Pulse Oximetry 98 98 10/01/20 02:05 10/01/20 02:08 10/01/20 02:10 Temperature Pulse Rate 91 H 88 89 Respiratory Rate 23 27 H Blood Pressure 109/70 109/70 105/63 Pulse Oximetry 98 96 10/01/20 02:15 10/01/20 02:20 10/01/20 02:25 Temperature Pulse Rate 87 87 87 Respiratory Rate 23 25 H 49 H Blood Pressure 109/62 109/62 109/67 Pulse Oximetry 96 96 96 10/01/20 02:30 10/01/20 02:35 10/01/20 02:40 Temperature Pulse Rate 87 88 88 Respiratory Rate 26 H 25 H 29 H Blood Pressure 108/63 108/73 105/70 Pulse Oximetry 97 97 98 10/01/20 02:45 10/01/20 02:50 10/01/20 02:55 Temperature Pulse Rate 88 89 91 H Respiratory Rate 25 H 24 29 H Blood Pressure 101/65 91/53 L 102/66 Pulse Oximetry 98 97 95 10/01/20 03:00 10/01/20 03:05 10/01/20 03:10 Temperature Pulse Rate 89 88 87 Respiratory Rate 26 H 27 H 21 Blood Pressure 104/69 114/66 118/78 Pulse Oximetry 97 98 97 10/01/20 03:15 10/01/20 03:21 10/01/20 03:25 Temperature Pulse Rate 87 85 84 Respiratory Rate 13 29 H 22 Blood Pressure 123/68 117/73 117/71 Pulse Oximetry 97 97 97 10/01/20 03:30 10/01/20 03:35 10/01/20 03:40 Temperature Pulse Rate 83 82 82 Respiratory Rate 20 23 Blood Pressure 123/74 116/71 120/76 Pulse Oximetry 96 98 96 10/01/20 03:45 10/01/20 03:50 10/01/20 03:55 Temperature Pulse Rate 80 79 80 Respiratory Rate 20 21 Blood Pressure 122/74 121/67 128/66 Pulse Oximetry 95 98 97 10/01/20 04:00 10/01/20 04:01 10/01/20 04:05 Temperature Pulse Rate 80 79 79 Respiratory Rate 31 H 19 32 H Blood Pressure 108/61 110/64 Pulse Oximetry 97 96 98 10/01/20 04:11 10/01/20 04:15 10/01/20 04:20 Temperature Pulse Rate 79 78 78 Respiratory Rate 22 22 21 Blood Pressure 111/62 115/61 107/61 Pulse Oximetry 98 97 95 10/01/20 04:25 10/01/20 04:30 10/01/20 04:35 Temperature Pulse Rate 79 80 81 Respiratory Rate 22 26 H 25 H Blood Pressure 106/59 L 107/60 111/64 Pulse Oximetry 94 95 96 10/01/20 04:40 10/01/20 04:45 10/01/20 04:51 Temperature Pulse Rate 83 83 84 Respiratory Rate Blood Pressure 113/64 113/66 125/72 Pulse Oximetry 97 99 100 10/01/20 04:55 10/01/20 05:00 10/01/20 05:05 Temperature Pulse Rate 83 79 77 Respiratory Rate 18 21 Blood Pressure 114/75 111/69 111/68 Pulse Oximetry 98 98 98 10/01/20 05:15 10/01/20 05:30 10/01/20 05:45 Temperature Pulse Rate 85 75 82 Respiratory Rate 31 H 20 22 Blood Pressure Pulse Oximetry MDM - Chest Pain Lab Data Result diagrams: 10/01/20 05:50 Labs: Lab Results 10/01/20 10/01/20 10/01/20 Range/Units 00:39 00:39 00:39 WBC 8.8 (4.5-11.0) X10^3/uL RBC 5.68 (4.5-5.9) X10^6/uL Hgb 14.7 (13.5-17.5) g/dL Hct 45.8 (41-53) % MCV 80.5 (80-100) fL MCH 25.9 L (26-34) PG MCHC 32.2 (30-36) % RDW 15.5 H (11.6-14.8) % Plt Count 324 (150-400) X10^3/uL Neut % (Auto) 49.5 L (50-75) % Lymph % (Auto) 36.3 (25-40) % [place] % (Auto) 12.2 (3-14) % Eos % (Auto) 1.7 L (2-4) % Baso % (Auto) 0.3 (0-2) % Neut # (Auto) 4300 (2833-6965) /uL Lymph # (Auto) 3200 (7417-6666) /uL [place] # (Auto) 1100 H (0-900) /uL Eos # (Auto) 200 (0-450) /uL Baso # (Auto) 0 (0-100) /uL PT 15.8 H (10.1-12.7) SECONDS INR 1.4 H (0.9-1.3) D-Dimer 492 H (<230) ng/mL Sodium (137-145) mmol/L Potassium (3.4-5.1) mmol/L Chloride (98-107) mmol/L Carbon Dioxide (22-32) mmol/L BUN (9-20) mg/dL Creatinine (0.66-1.25) mg/dL Estimated GFR (>60) mL/min BUN/Creatinine Ratio (6-22) Glucose (70-100) mg/dL Calcium (8.4-10.2) mg/dL Total Bilirubin (0.2-1.3) mg/dL AST (17-59) IU/L ALT (<50) IU/L Alkaline Phosphatase (38-126) U/L Total Creatine Kinase (55-170) U/L CK-MB (CK-2) CK-MB (CK-2) Rel Index Troponin I (0.01-0.034) ng/mL NT-Pro-B Natriuret Pep 4000 H (<125) pg/mL Total Protein (6.3-8.2) g/dL Albumin (3.5-5.0) g/dL Globulin (1.7-4.1) g/dL Albumin/Globulin Ratio (1.0-2.8) Lipase (23-300) U/L U Opiates 300ng/mL cut (Negative) Ur Oxycodone Screen (Negative) Urine Methadone Screen (Negative) Ur Barbiturates Screen (Negative) U Tricyclic Antidepress (Negative) Ur Phencyclidine Scrn (Negative) Ur Amphetamines Screen (Negative) U Methamphetamines Scrn (Negative) Ur MDMA Scrn (Ecstasy) (Negative) U Benzodiazepines Scrn (Negative) Urine Cocaine Screen (Negative) U Marijuana (THC) Screen (Negative) COVID-19 PCR (Negative) 10/01/20 10/01/20 10/01/20 Range/Units 00:39 00:40 02:48 WBC (4.5-11.0) X10^3/uL RBC (4.5-5.9) X10^6/uL Hgb (13.5-17.5) g/dL Hct (41-53) % MCV (80-100) fL MCH (26-34) PG MCHC (30-36) % RDW (11.6-14.8) % Plt Count (150-400) X10^3/uL Neut % (Auto) (50-75) % Lymph % (Auto) (25-40) % [place] % (Auto) (3-14) % Eos % (Auto) (2-4) % Baso % (Auto) (0-2) % Neut # (Auto) (4935-3479) /uL Lymph # (Auto) (6495-5974) /uL [place] # (Auto) (0-900) /uL Eos # (Auto) (0-450) /uL Baso # (Auto) (0-100) /uL PT (10.1-12.7) SECONDS INR (0.9-1.3) D-Dimer (<230) ng/mL Sodium 136 L (137-145) mmol/L Potassium 4.4 (3.4-5.1) mmol/L Chloride 101 (98-107) mmol/L Carbon Dioxide 27 (22-32) mmol/L BUN 28 H (9-20) mg/dL Creatinine 1.73 H 1.52 H (0.66-1.25) mg/dL Estimated GFR 42.7 L 49.6 L (>60) mL/min BUN/Creatinine Ratio 16.2 (6-22) Glucose 122 H (70-100) mg/dL Calcium 9.9 (8.4-10.2) mg/dL Total Bilirubin 1.4 H (0.2-1.3) mg/dL AST 29 (17-59) IU/L ALT 25 (<50) IU/L Alkaline Phosphatase 81 (38-126) U/L Total Creatine Kinase 94 (55-170) U/L CK-MB (CK-2) TNP CK-MB (CK-2) Rel Index TNP Troponin I 0.027 0.060 H (0.01-0.034) ng/mL NT-Pro-B Natriuret Pep (<125) pg/mL Total Protein 7.2 (6.3-8.2) g/dL Albumin 4.0 (3.5-5.0) g/dL Globulin 3.2 (1.7-4.1) g/dL Albumin/Globulin Ratio 1.3 (1.0-2.8) Lipase 65 (23-300) U/L U Opiates 300ng/mL cut (Negative) Ur Oxycodone Screen (Negative) Urine Methadone Screen (Negative) Ur Barbiturates Screen (Negative) U Tricyclic Antidepress (Negative) Ur Phencyclidine Scrn (Negative) Ur Amphetamines Screen (Negative) U Methamphetamines Scrn (Negative) Ur MDMA Scrn (Ecstasy) (Negative) U Benzodiazepines Scrn (Negative) Urine Cocaine Screen (Negative) U Marijuana (THC) Screen (Negative) COVID-19 PCR Negative (Negative) 10/01/20 10/01/20 Range/Units 05:44 05:50 WBC (4.5-11.0) X10^3/uL RBC (4.5-5.9) X10^6/uL Hgb 13.1 L (13.5-17.5) g/dL Hct 40.9 L (41-53) % MCV (80-100) fL MCH (26-34) PG MCHC (30-36) % RDW (11.6-14.8) % Plt Count (150-400) X10^3/uL Neut % (Auto) (50-75) % Lymph % (Auto) (25-40) % [place] % (Auto) (3-14) % Eos % (Auto) (2-4) % Baso % (Auto) (0-2) % Neut # (Auto) (2126-5061) /uL Lymph # (Auto) (0528-2376) /uL [place] # (Auto) (0-900) /uL Eos # (Auto) (0-450) /uL Baso # (Auto) (0-100) /uL PT (10.1-12.7) SECONDS INR (0.9-1.3) D-Dimer (<230) ng/mL Sodium (137-145) mmol/L Potassium (3.4-5.1) mmol/L Chloride (98-107) mmol/L Carbon Dioxide (22-32) mmol/L BUN (9-20) mg/dL Creatinine (0.66-1.25) mg/dL Estimated GFR (>60) mL/min BUN/Creatinine Ratio (6-22) Glucose (70-100) mg/dL Calcium (8.4-10.2) mg/dL Total Bilirubin (0.2-1.3) mg/dL AST (17-59) IU/L ALT (<50) IU/L Alkaline Phosphatase (38-126) U/L Total Creatine Kinase (55-170) U/L CK-MB (CK-2) CK-MB (CK-2) Rel Index Troponin I (0.01-0.034) ng/mL NT-Pro-B Natriuret Pep (<125) pg/mL Total Protein (6.3-8.2) g/dL Albumin (3.5-5.0) g/dL Globulin (1.7-4.1) g/dL Albumin/Globulin Ratio (1.0-2.8) Lipase (23-300) U/L U Opiates 300ng/mL cut Positive H (Negative) Ur Oxycodone Screen Negative (Negative) Urine Methadone Screen Negative (Negative) Ur Barbiturates Screen Negative (Negative) U Tricyclic Antidepress Negative (Negative) Ur Phencyclidine Scrn Negative (Negative) Ur Amphetamines Screen Negative (Negative) U Methamphetamines Scrn Negative (Negative) Ur MDMA Scrn (Ecstasy) Negative (Negative) U Benzodiazepines Scrn Negative (Negative) Urine Cocaine Screen Negative (Negative) U Marijuana (THC) Screen Negative (Negative) COVID-19 PCR (Negative) ECG Data Attestation: I personally reviewed and interpreted this ECG as follows: Interpretation: EKG is normal sinus rhythm rate [76 ] and free of any signs of ischemia or ectopy. No ST segmental elevation or depression. No T wave inversions. Right bundle-branch block Discharge Plan Departure Patient Disposition: [facility] Clinical Impression: CHF (congestive heart failure) Chest pain Qualifiers: Chest pain type: chest pain on breathing Qualified Code(s): R07.1 - Chest pain on breathing Prescriptions: No Action risperidone [Risperdal] 1 MG tablet 1 mg PO HS Qty: 0 RF: 0 furosemide 20 mg Tablet 20 mg PO DAILY RF: 0 spironolactone 25 mg Tablet 25 mg PO DAILY RF: 0 losartan 25 mg Tablet 12.5 mg PO BEDTIME RF: 0 metoprolol succinate 25 mg Tablet Extended Release 24 Hr 25 mg PO DAILY RF: 0 divalproex 500 mg tablet extended release 24 hr 500 mg PO DAILY RF: 0 albuterol sulfate 90 mcg/actuation HFA aerosol inhaler 90 mcg INHALATION Q4H PRN (Reason: Shortness Of Breath) RF: 0
[2020-10-01 00:52] LABS: Add Manual Diff / Slide Review NO; Basophils Absolute Auto 0 /uL (0-100); Basophils Percent Auto 0.3 % (0-2); Eosinophils Absolute Auto 200 /uL (0-450); Eosinophils Percent Auto 1.7 % (2-4); Hematocrit 45.8 % (41-53); Hemoglobin 14.7 g/dL (13.5-17.5); Lymphocytes Absolute Auto 3200 /uL (1100-4500); Lymphocytes Percent Auto 36.3 % (25-40); Mean Corpuscular HGB Conc 32.2 % (30-36); Mean Corpuscular Hemoglobin 25.9 PG (26-34); Mean Corpuscular Volume 80.5 fL (80-100); Monocytes Absolute Auto 1100 /uL (0-900); Monocytes Percent Auto 12.2 % (3-14); Neutrophils Absolute Auto 4300 /uL (1500-7000); Neutrophils Percent Auto 49.5 % (50-75); Platelet Count 324 X10^3/uL (150-400); Red Blood Cell Count 5.68 X10^6/uL (4.5-5.9); Red Cell Distribution Width 15.5 % (11.6-14.8); White Blood Cell Count 8.8 X10^3/uL (4.5-11.0)
[2020-10-01] MEDS: SODIUM CHLORIDE 0.9% 1,000 ML 150 ML IV (00:58)
[2020-10-01] MEDS: ONDANSETRON 4 MG/2 ML INJ IV (00:59)
[2020-10-01] MEDS: KETOROLAC 60 MG/2 ML VIAL 15 MG IV (00:59)
[2020-10-01 01:01] LABS: Alanine Aminotransferase 25 IU/L (<50); Albumin Globulin Ratio 1.3 (1.0-2.8); Alkaline Phosphatase 81 U/L (38-126); Aspartate Aminotransferase 29 IU/L (17-59); BUN Creatinine Ratio 16.2 (6-22); Bilirubin Total 1.4 mg/dL (0.2-1.3); Blood Urea Nitrogen 28 mg/dL (9-20); Calcium 9.9 mg/dL (8.4-10.2); Carbon Dioxide 27 mmol/L (22-32); Chloride 101 mmol/L (98-107); Creatine Kinase 94 U/L (55-170); Estimated Glomerular Filt Rate 42.7 mL/min (>60); Globulin 3.2 g/dL (1.7-4.1); Glucose 122 mg/dL (70-100); HEMOLYSIS < 15 (0-50); Lipase 65 U/L (23-300); Potassium 4.4 mmol/L (3.4-5.1); Sodium 136 mmol/L (137-145); Total Protein 7.2 g/dL (6.3-8.2)
[2020-10-01] MEDS: ASPIRIN 81 MG CHEW TAB 324 MG PO (01:01)
[2020-10-01 01:02] LABS: INR 1.4 (0.9-1.3); Prothrombin Time 15.8 SECONDS (10.1-12.7)
[2020-10-01 01:05] LABS: D Dimer 492 ng/mL (<230)
[2020-10-01 01:13] LABS: Troponin I 0.027 ng/mL (0.01-0.034)
[2020-10-01 01:20] LABS: COVID19 -Nasal RAPID Negative (Negative)
[2020-10-01 01:36] LABS: NT-proBNP (BNP-Adult 18+) 4000 pg/mL (<125)
--- NOTE | 2020-10-01 01:38 | DI.CT.S_ITS ---
PROCEDURE: CT ANGIO CHEST PE PROTOCOL INDICATIONS: chest pain, shortness of breath TECHNIQUE: After the administration of intravenous contrast, 2 mm thick sections acquired from the pulmonary apices to the posterior costophrenic angles. 3-dimensional maximum intensity projection (MIP) coronal and sagittal reformats were then acquired through the thorax. For radiation dose reduction, the following was used: automated exposure control, adjustment of mA and/or kV according to patient size. COMPARISON: None. FINDINGS: Image quality: Excellent. Pulmonary arteries: There are no filling defects identified within the pulmonary arteries. There is mild enlargement of main pulmonary artery measuring 3.0 cm. There is also reflux of contrast into the IVC. No flattening of the interventricular septum. Lungs and pleura: There is a moderate-sized right pleural effusion. No left-sided pleural effusion. Dependent atelectasis bilateral lower lobes. Patchy ground-glass opacities are noted in a central distribution. There is also more focal subpleural ground-glass opacities of the left upper lobe peripherally best seen on image 39, series 4. No pneumothorax. Central and peripheral airways are patent. Mild perihilar airway thickening. Mediastinum: Heart size is enlarged, without pericardial effusion. No mediastinal or hilar adenopathy. Multiple mediastinal lymph nodes are more notable for number rather than size and are likely reactive in etiology. Thoracic aorta is normal in caliber and enhancement. Esophagus is normal in caliber, without hiatal hernia. Bones and chest wall: No suspicious bony lesions. No acute compression fractures the imaged spine. Ribs and thoracic spine appear intact throughout. Thyroid gland is unremarkable. No axillary or supraclavicular adenopathy. Abdomen: Trace perihepatic ascites. Minimal nodular thickening of the adrenal gland without definitive nodule. Visualized upper abdominal solid organs appear normal in the early arterial phase of enhancement. IMPRESSION: 1. Constellation of findings suggestive of right heart failure with associated pulmonary edema. Atypical pneumonia, especially in the left upper lobe, cannot be completely excluded. Recommend follow-up imaging to document resolution of findings. 2. No acute pulmonary emboli. No significant discrepancy with the ui developer with angular js radiology preliminary report. Dictated by: Edouard Ghosh M.D. on 10/01/2020 at 9:02 Approved by: Edouard Ghosh M.D. on 10/01/2020 at 9:23
[2020-10-01] MEDS: NITROGLYCERIN 0.4 MG SL TAB SL ×3 (01:45→02:08)
--- NOTE | 2020-10-01 02:19 | PC.NURSE ---
Pt reports no relief after ntg, CP remains 8-07/18. Dr Schuler notified.
[2020-10-01] MEDS: HYDROMORPHONE 0.5 MG INJ IV ×2 (02:49→04:33)
[2020-10-01 03:05] LABS: Estimated Glomerular Filt Rate 49.6 mL/min (>60)
[2020-10-01] MEDS: HEPARIN 5,000 UNIT/ML VIAL 5000 UNIT IV (05:05)
[2020-10-01] MEDS: HEPARIN DRIP 25,000 UNIT/500 ML IV.SOLN 20 UNIT IV (05:06)
[2020-10-01 05:59] LABS: Hematocrit 40.9 % (41-53); Hemoglobin 13.1 g/dL (13.5-17.5)
[2020-10-01 06:12] LABS: UR Morphine/Opiate cutoff 300 Positive (Negative); Ur Creatinine 200 (Normal); Ur Specific Gravity 1.015 (Normal); Urine Amphetamines Negative (Negative); Urine Barbiturates Negative (Negative); Urine Benzodiazepines Negative (Negative); Urine Cocaine Negative (Negative); Urine MDMA Negative (Negative); Urine Methadone Negative (Negative); Urine Methamphetamines Negative (Negative); Urine Oxycodone Negative (Negative); Urine Phencyclidine Negative (Negative); Urine Tetrahydrocannabinol Negative (Negative); Urine Tricyclic Antidepressant Negative (Negative); Urine pH 7 (Normal)
== END 2020-10-01 06:30 | disposition short-term general hospital (02) ==
PROVIDERS: Emergency Provider Emergency Medicine
DX: I50.9 Heart failure, unspecified (principal); R07.1 Chest pain on breathing; R11.2 Nausea with vomiting, unspecified
CPT/HCPCS: 36415; 71045; 71275; 80053; 80305; 82550; 82565; 83690; 83880; 84484; 85014; 85018; 85025; 85379; 85610; 87635; 93005; 93010; 96361; 96365; 96375; 96376; 99284; J1170; J1644; J1885; J2405; Q9967

== ENCOUNTER 2021-03-05 10:15 | Emergency (ER) | payer MEDICAID, SELFPAY ==
[2020-08-11 20:16] VITALS: BMI 49.5
[2021-03-05 10:20] VITALS: BP 113/66; PULSE 77; RESP 18; TEMP 36.7; O2SAT 100; BMI 28.2
--- NOTE | 2021-03-05 10:49 | ED_ITS ---
HPI - Extremity Injury (Lower) General Chief Complaint: Extremity Injury, Lower Stated Complaint: left side knee pain started yesterday Time Seen by Provider: 03/05/21 10:26 Source: patient and family Mode of arrival: Family Vehicle Limitations: no limitations History of Present Illness HPI Narrative: Patient is a 45-year-old male here for evaluation of 2 days of left knee pain. He denies any trauma. No fevers. Does have discomfort with walking and touching the knee. He states that is on the outside. He does think it is somewhat swollen. Has never had anything like this in the past. Has not tried anything for symptoms prior to arrival. Related Data Home Medications Medication Instructions Recorded Confirmed risperidone [Risperdal] 1 mg PO HS #0 10/01/17 10/01/20 albuterol sulfate 90 mcg INHALATION Q4H PRN 08/11/20 10/01/20 divalproex 500 mg PO DAILY 08/11/20 10/01/20 furosemide 20 mg PO DAILY 10/01/20 10/01/20 losartan 12.5 mg PO BEDTIME 10/01/20 10/01/20 metoprolol succinate 25 mg PO DAILY 10/01/20 10/01/20 spironolactone 25 mg PO DAILY 10/01/20 10/01/20 Allergies Allergy/AdvReac Type Severity Reaction Status Date / Time carrot [CARROT] Allergy Severe Swelling Verified 06/21/19 00:10 of Lip/Tongue/Throat Review of Systems Constitutional Constitutional: Denies fever(s) and Denies headache(s) Eyes Eyes: Denies change in vision ENT Ears, Nose, Mouth, and Throat: Denies headache(s) Cardiovascular Cardiovascular: Denies chest pain and Denies dyspnea Respiratory Respiratory: Denies dyspnea Gastrointestinal Gastrointestinal: Denies abdominal pain Genitourinary Genitourinary: Denies dysuria Genitourinary: Denies dysuria Musculoskeletal Comments: Left knee pain Integumentary/Breasts Skin/Breast: Denies lesions and Denies rash Neurologic Neurologic: Denies behavioral changes, Denies confusion and Denies headache(s) Psychiatric Psychiatric: Denies behavioral changes and Denies confusion Hematologic/Lymphatic On Anticoagulants: Yes Allergic/Immunologic Allergic/Immunologic: Denies urticaria Patient History Medical History Alcohol dependence Erysipelas Methamphetamine abuse Surgical History No history of previous surgery Family History Father Myocardial infarction Mother Cancer Social History household members: significant other Smoking Status: Former smoker alcohol intake: current Smoking Status: Former smoker alcohol intake frequency: 3 or more drinks per day Substance Use Type: former substance user and methamphetamine Exam Initial Vital Signs Initial Vital Signs: Vital Signs Temperature 98.0 F 03/05/21 10:20 Pulse Rate 77 03/05/21 10:20 Respiratory Rate 18 03/05/21 10:20 Blood Pressure 113/66 03/05/21 10:20 Pulse Oximetry 100 03/05/21 10:20 Const General: cooperative, comfortable and well developed Limitations: mental status not altered HENMT Head: normal to inspection and normocephalic Resp Effort & Inspection: normal respiratory effort Cardio Rate: regular rate Pulses: dorsalis pedis present on the left Skin Lesions: no lesions Rashes: no rashes Neuro General: patient alert and patient awake Sensory Exam: no sensory deficits noted Extrem Other: Patient's left knee is unremarkable except for tenderness to palpation at the insertion of the quadriceps tendon on the patella and also over the prepatellar bursa. He does have a very small amount of swelling in the prepatel lar region. The rest of his left knee exam is unremarkable. Psych Appearance: grossly normal and well kempt Course Vital Signs Vital signs: Vital Signs - 8 hr 03/05/21 10:20 03/05/21 11:06 Temperature 98.0 F Pulse Rate 77 Respiratory Rate 18 Blood Pressure 113/66 100/61 Pulse Oximetry 100 MDM - Extremity Injury (Lower) MDM Narrative Medical decision making narrative: There has been no trauma so I have a low suspicion for fracture. There is no redness over the areas of low suspicion for cellulitis. His exam is not consistent with a DVT. It is consistent with quadriceps tendinitis/bursitis. He cannot take anti-inflammatories because he is on Coumadin so he will take Tylenol. We also discussed icing the area. Offered him crutches but he declined. I feel we can hold on further workup for now. He was given return precautions and follow-up instructions. He expressed understanding agreement. Discharge Plan Departure Patient Disposition: Home Clinical Impression: Quadriceps tendinitis, Bursitis, prepatellar, left Instructions: Patellar Tendinopathy, DI for Bursitis Activity Restrictions/Additional Instructions: Continue all of your medications as directed. You can ice your knee. You can walk as tolerated. Use crutches as needed. Return to the emergency department for any new or worsening symptoms Prescriptions: No Action risperidone [Risperdal] 1 MG tablet 1 mg PO HS Qty: 0 RF: 0 furosemide 20 mg Tablet 20 mg PO DAILY RF: 0 spironolactone 25 mg Tablet 25 mg PO DAILY RF: 0 losartan 25 mg Tablet 12.5 mg PO BEDTIME RF: 0 metoprolol succinate 25 mg Tablet Extended Release 24 Hr 25 mg PO DAILY RF: 0 divalproex 500 mg tablet extended release 24 hr 500 mg PO DAILY RF: 0 albuterol sulfate 90 mcg/actuation HFA aerosol inhaler 90 mcg INHALATION Q4H PRN (Reason: Shortness Of Breath) RF: 0
[2021-03-05 11:06] VITALS: BP 100/61
== END 2021-03-05 11:07 | disposition home or self-care (01) ==
PROVIDERS: Emergency Provider Emergency Medicine
DX: M70.42 Prepatellar bursitis, left knee (principal); M76.899 Other specified enthesopathies of unspecified lower limb, excluding foot
CPT/HCPCS: 99281